=== PATIENT | female | born 1935 | race Caucasian/White ===

== ENCOUNTER 2016-12-13 17:38 | Emergency (ER) | payer OTHER, MEDICARE ==
[~2016-12-13 17:38] MED LIST: ALLOPURINOL300 MG PO; ALUPENT 20MG TA20 MG PO; ASPIR 8181 MG PO; BENADRYL25 MG PO; CALCIUM + D 6001 TAB PO; COLACE100 MG PO; CRANBERRY CONC500 MG PO; DULOXETINE HYDR60 MG PO; FLOVENT HF0.22 MG/Ac INH; FUROSEMIDE20 MG PO; GABAPENTIN100 MG PO; HYDROMORPHONE HC2 MG PO; LEVOCETIRIZINE D5 MG PO; LOVASTATIN20 M1 PO; MACROBID 100 M100 MG PO; MIRALAX17 GM PO; NORVASC 5MG TAB5 MG PO; OMEPRAZOLE20 M2 PO; OXYCONTIN10 MG PO; PANTOPRAZOLE SO40 MG PO; PERCOCET 325 MG1 TA2 PO; PROAIR HFA0.09 MG/Ac INH; SYNTHROID0.075 MG PO; TRAMADOL HCL50 M1 PO; TYLENOL 8 HOUR650 MG PO; VITAB121000 PO; VITAMIN C500 M3 PO; VITAMIN D32000 I1 PO
--- NOTE | 2016-12-13 17:58 | ED MVC/FALL/TRAUMA COMPLAINT ---
History of Present Illness General Chief Complaint: Fall Stated Complaint: FALL Source: patient, family, EMS Exam Limitations: no limitations Vital Signs & Intake/Output Vital Signs & Intake/Output Vital Signs Date Time Temp Pulse Resp B/P Pulse O2 O2 Flow FiO2 Ox Delivery Rate 12/13 1925 96.0 74 20 144/72 97 Room Air 12/13 1749 98.4 78 16 143/68 96 Room Air Room Air Allergies Coded Allergies: adhesive tape (Severe, HIVES 09/17/16) erythromycin base (From Erythrocin) (Severe, NAUSEA, HIVES 09/17/16) Reconcile Medications Albuterol Sulfate (Proair Hfa) 0.09 MG/Actuation MARK 2 PUFF INH PRN ASTHMA/ COPD (Reported) Allopurinol 300 MG TAB 1 TAB PO NOON GOUT (Reported) Amlodipine (Norvasc 5MG Tab) 5 MG TABLET 1 TAB PO QAM BP (Reported) Ascorbic Acid (Vitamin C) 500 MG TAB 1 TAB PO QAM SUPPLEMENT (Reported) Aspirin (Ecotrin) 81 MG TABLET.DR 1 TAB PO 10AM HEART (Reported) Calcium/Vitamin D (Calcium + D) 600 MG/200 IU TAB 1 TAB PO QAM SUPPLEMENT ( Reported) CHOLECALCIFEROL (VITAMIN D3) (Vitamin D-3) (Unknown Strength) CAPSULE 2 TAB PO QAM SUPPLEMENT (Reported) CRANBERRY EXTRACT (Cranberry Concentrate) (Unknown Strength) CAPSULE (Unknown Dose) PO QAM SUPPLEMENT (Reported) Cyanocobalamin (Vitamin B-12) (Unknown Strength) TABLET (Unknown Dose) PO QAM SUPPLEMENT (Reported) Diphenhydramine HCl (Benadryl) 25 MG CAPSULE 1-2 CAP PO Q6P ITCH Docusate Sodium (Colace) (Unknown Strength) CAPSULE (Unknown Dose) PO PRN STOOL SOFTENER (Reported) DULOXETINE HCL (Duloxetine Hydrochloride) 60 MG CAPSULE.DR 1 CAP PO QAM MENTAL HEALTH/NERVE PAIN (Reported) Fluticasone Propionate (Flovent Hfa) 0.22 MG/Actuation MARK 2 PUFF INH BID ASTHMA (Reported) 220 MCG PER PUFF Furosemide 20 MG TABLET 1-2 TAB PO AD DIURETIC (Reported) Gabapentin 100 MG CAPSULE 1 CAP PO TID NERVE PAIN (Reported) LEVOCETIRIZINE DIHYDROCHLORIDE (Levocetirizine Dihydrochloride) 5 MG TABLET 1 TAB PO QAM ALLERGIES/ASTHMA (Reported) Levothyroxine Sodium (Synthroid) 0.075 MG TAB 0.075 MG PO DAILY AC THYROID ( Reported) Lovastatin 20 MG TABLET 1 TAB PO DAILY HEART HEALTH (Reported) Metaproterenol (Alupent 20MG Tablet) 20 MG TABLET 1 TAB PO QPM CHOLESTEROL ( Reported) Nitrofurantoin Monohyd/M-Cryst (Macrobid 100 MG Capsule) 100 MG CAPSULE 1 CAP PO BID UTI with food Omeprazole 20 MG CAPSULE.DR 1 CAP PO DAILY STOMACH HEALTH (Reported) Oxycodone Cr (OxyContin) 10 MG TAB 10 MG PO Q12 PAIN OXYCODONE HCL/ACETAMINOPHEN (Percocet 5-325 MG Tablet) 325 MG/5 MG TAB 1 TAB PO Q4P PRN PAIN SCALE 1-4 OXYCODONE HCL/ACETAMINOPHEN (Percocet 5-325 MG Tablet) 325 MG/5 MG TAB 2 TAB PO Q4P PRN PAIN SCALE 5-10 Pantoprazole Sodium 40 MG TABLET.DR 1 TAB PO DAILY AC GI (Reported) Polyethylene Glycol 3350 (Miralax) 17 GRAM/DOSE POWDER 17 GM PO PRN GI ( Reported) mix with water, juice, soda, coffee or tea Tramadol HCl 50 MG TABLET 1 TAB PO BIDP PRN PAIN (Reported) Triage Note: PT BIBA FROM ASSISTED [facility]ING IN [facility] AFTER TRIPPING AND FALLING WHILE PUTTING HER PANT ON. PT DENIES LOC, PT HIT THE RIGHT EYEBOW AND FELL ONTO THE HAND AND KNEE WHICH ARE BOTH BRUISED AND PAINFUL. NO DEFORMITIES NOTED. NO C-COLLAR PAIN. SHE IS ALERT AND ORIENTED. Triage Nurses Notes Reviewed? yes Onset: Abrupt Duration: hour(s): (1) Timing: single episode today Severity: moderate Injuries/Fall Location: hand, ankle, sternum, chest wall Method of Injury: fall Loss of Consciousness: no loss of consciousness Modifying Factors: Worsens With: movement, other (touch). HPI: This is an 81-year-old female from assisted living who presents by EMS for chief complaint of fall at [facility]. She states she was tried to pull up her pants when she lost her balance and fell forward. She had her face, right hand and ankle. She is usually either wheelchair van uses a walker. She states she activated her [facility] in the staff at the [facility] called EMS for transport. She denies any headache or blurred vision. She denies any weakness or numbness or tingling at any point. He is not any blood thinners. She complains of 7 out of 10 pain in her right wrist, mild sternal pain and some pain in her right ankle. She also complains of [id number] pain in her right face. Past History Travel History Traveled to [place] past 21 day No Medical History Any Pertinent Medical History? 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 Camacho states that approximately a year and a half ago she experienced a back infection of unknown origin that required long-term antibiotic treatment while an inpatient at both [facility] and [facility]. She is not sure of the origin of this infection or the bacteria that was being treated at that time. She does state however she was released from the hospital infection free. History of MRSA: No History of VRE: No History of CDIFF: No Surgical History Surgical History: appendectomy, hysterectomy, L KNEE REPLACEMENT TONSILECTOMY Psychosocial History Who do you live with [facility] at Home None What is your primary language Faroese Tobacco Use: Never used Family History Family History, If Any: FATHER FH: colon cancer MOTHER Valvular heart disease SISTER FH: colon cancer Hx Contributory? No Review of Systems Review of Systems Constitutional: Denies: chills, fever. Eyes: Denies: blurred vision. Ears, Nose, Throat, Mouth: Reports: no symptoms. Respiratory: Denies: cough, short of breath. Cardiovascular: Reports: chest pain. Gastrointestinal/Abdominal: Reports: no symptoms. Genitourinary: Reports: no symptoms. Musculoskeletal: Reports: joint pain, muscle pain. Skin: Reports: no symptoms. Neurological/Psychological: Reports: ataxia. Denies: confusion, headache. All Other Systems: Reviewed and Negative Physical Exam Physical Exam General Appearance: well developed/nourished, alert, awake, anxious, mild distress Head: atraumatic, normal appearance Eyes: Bilateral: normal appearance, PERRL, EOMI. Ears, Nose, Throat, Mouth: hearing grossly normal, moist mucous membrane Neck: normal inspection, supple, full range of motion Respiratory: normal breath sounds, chest non-tender, no respiratory distress Cardiovascular: TENDER OVER STERNUM Peripheral Pulses: 2+ radial (R), 2+ radial (L) Gastrointestinal: normal bowel sounds, soft, non-tender Extremities: normal range of motion Neurologic/Psych: no motor/sensory deficits, awake, alert, oriented x 3 Skin: intact, normal color, warm/dry Core Measures ACS in differential dx? No Severe Sepsis Present: No Septic Shock Present: No Progress Differential Diagnosis: ICH, HAND FX, STERNAL FX, RIB FX, PTX, ORBITAL FRACTURE Plan of Care: Orders Procedure Date/time Status CT CHEST WO IV CONTRAST 12/13 1837 Active XRY-HAND, 2 Views RIGHT 12/13 1756 Active XRY-CHEST XRAY, ONE VIEW ONLY 12/13 1756 Active XRY-TWO VIEW RIGHT ANKLE 12/[address] HEAD WO IV CONTRAST 12/[address] MAXILLOFACIAL W/O CON 12/13 1756 Active Diagnostic Imaging: Viewed by Me: Radiology Read, CT Scan. Discussed w/RAD: Radiology Read, CT Scan. Radiology Impression: PATIENT: SERENA TAN PRESENT AGE: 81 PATIENT ACCOUNT NO: [id number] : 36 LOCATION: [facility] ORDERING PHYSICIAN: YUMIKO MOSS MD SERVICE DATE: 12/13/16 EXAM TYPE: CAT - CT CHEST WO IV CONTRAST EXAMINATION: CT CHEST WITHOUT CONTRAST CLINICAL INFORMATION: Status post fall. Evaluate for sternal fracture. COMPARISON: Chest x-ray 12/13/2016. CT chest without contrast 08/26/2013. TECHNIQUE: Multidetector volumetric CT imaging of the chest was done. Axial MIP volume rendering provided. Sagittal and coronal reformatted images were obtained. DLP: 898 mGy-cm FINDINGS: BIOFUELS TECHNOLOGY MANAGER: Utility Systems Repairer Operator images of the chest demonstrate pulmonary hypoinflation. LUNGS: Evaluation of the lung parenchyma demonstrates pulmonary hypoinflation. There is minimal dependent bibasilar atelectasis. Subsegmental atelectasis is also present within the right middle lobe. Incidental note is made of a 9 mm subpleural nodule abutting the periphery of the right lower lobe (series 3, image 37). This nodule is new relative to a prior CT dating back to 2012. There is no focal airspace consolidation to suggest infection. The central airways are patent, without endobronchial obstructing lesions. MEDIASTINUM: Normal heart size, without significant pericardial effusion. Normal three-vessel branching of the aortic arch. Scattered atherosclerosis of the thoracic aorta and scattered coronary artery calcifications. Normal caliber of the thoracic aorta and main pulmonary artery. No significant mediastinal or hilar adenopathy. Small hiatal hernia. PLEURA: No pleural effusions or pneumothoraces. AXILLA: No significant axillary adenopathy. UPPER ABDOMEN: No acute findings within the upper abdomen. Partially visualized punctate hyperdense foci within the gallbladder. This could represent layering gallstones. OSSEOUS STRUCTURES: No acute sternal fracture. Moderate degenerative changes involving the bilateral glenohumeral joints. No acute displaced fractures of the bilateral ribs. Mild to moderate multilevel degenerative changes of the imaged thoracic spine. No acute thoracic vertebral compression deformity or subluxation. IMPRESSION: 1. No acute sternal fractures. No acute osseous abnormality of the imaged axial or appendicular skeleton. 2. Incidental 9 mm subpleural nodule along the periphery of the right lower lobe. This nodule is indeterminate and entirely nonspecific. Various management parameters for solitary pulmonary nodules are in the literature. According to the Fleischner Society, recommendations for pulmonary nodules are as follows: Nodule size > 8 mm in LOW RISK PATIENTS: Follow up CT at around 3, 9, and 24 months, dynamic contrast-enhanced CT, PET, and/or biopsy. Nodule size > 8 mm in HIGH RISK PATIENTS: Same as for low-risk patients. DICTATED BY: JUAN MOTTA MD DATE/TIME DICTATED:12/13/161915 UTILITY SYSTEMS REPAIRER OPERATOR:GAGE DATE/TIME TRANSCRIBED:12/13/161915 CONFIDENTIAL, DO NOT COPY WITHOUT APPROPRIATE AUTHORIZATION. <Electronically signed in Other Vendor System> SIGNED BY: JUAN MOTTA MD 12/13/161924, PATIENT: SERENA TAN PRESENT AGE: 81 PATIENT ACCOUNT NO: [id number] : 36 LOCATION: [facility] ORDERING PHYSICIAN: YUMIKO MOSS MD SERVICE DATE: 12/13/16 EXAM TYPE: CAT - CT HEAD WO IV CONTRAST; CT MAXILLOFACIAL W/O CON EXAMINATION: CT HEAD AND FACE WITHOUT CONTRAST CLINICAL INFORMATION: Status post fall. Evaluate for orbital fracture and acute intracranial hemorrhage. COMPARISON: MRI brain 10/23/ 2013. Noncontrast head CT 08/26/2013. TECHNIQUE: Multiple axial CT images of the head and face were obtained without intravenous contrast. 2-D coronal and sagittal reformatted images of the face were obtained at the acquisition workstation.. DLP: 1288 mGy-cm. FINDINGS: HEAD: No acute intracranial abnormality. No acute intracranial hemorrhage, mass or mass effect or abnormal extra-axial fluid collections. The density within the dural venous sinuses is within normal limits. The ventricles are normal in size, without hydrocephalus. There are no focal areas of hypoattenuation within a vascular distribution to suggest acute transcortical ischemia. The basilar cisterns are patent. No acute calvarial abnormality is identified. Evaluation of the soft tissues demonstrates minimal right frontal scalp soft tissue swelling. FACE: Noncontrast CT imaging of the face demonstrates minimal right periorbital and right frontal scalp hematoma and soft tissue swelling. No acute maxillofacial fractures are identified. The lamina papyracea are intact. The bilateral globes and orbits appear unremarkable. No orbital floor or orbital roof fractures are identified and there is no significant intraconal or extraconal stranding. No retrobulbar hematoma is visualized. Evaluation of the paranasal sinuses demonstrates chronic left sphenoid sinusitis, characterized by near complete opacification of the left sphenoid sinus with associated periosteal bone formation. There is minimal mucosal thickening of the left ethmoid air cells. The remaining imaged paranasal sinuses and mastoid air cells are well aerated. There is rightward nasal septal deviation with an associated nasal septal spur. The carotid canals are normally covered by bone. The ethmoid roofs are symmetric. The bilateral temporomandibular joints are intact. Evaluation of the imaged upper cervical spine demonstrates demineralization of the visualized bones and partially visualized moderate to severe degenerative changes of the atlantoaxial articulation. IMPRESSION: 1. Minimal right periorbital and right frontal scalp hematoma and soft tissue swelling. Otherwise, no acute intracranial abnormality. No acute maxillofacial fractures. 2. Chronic left sphenoid sinusitis. DICTATED BY: JUAN MOTTA MD DATE/TIME DICTATED:12/13/161904 UTILITY SYSTEMS REPAIRER OPERATOR: GAGE DATE/TIME TRANSCRIBED:12/13/161904 CONFIDENTIAL, DO NOT COPY WITHOUT APPROPRIATE AUTHORIZATION. <Electronically signed in Other Vendor System> SIGNED BY: JUAN MOTTA MD 12/13/161918, PATIENT: SERENA TAN PRESENT AGE: 81 PATIENT ACCOUNT NO: [id number] : 36 LOCATION: [facility] ORDERING PHYSICIAN: YUMIKO MOSS MD SERVICE DATE: 12/13/16 EXAM TYPE: RAD - XRY-TWO VIEW RIGHT ANKLE EXAMINATION: XR ANKLE, RIGHT CLINICAL INFORMATION: Right ankle pain following fall. Evaluate for acute fracture. COMPARISON: None. TECHNIQUE: Lateral and crosstable lateral of the right ankle. FINDINGS: Lateral and crosstable lateral views of the right ankle demonstrate demineralization of the visualized bones. There is limited evaluation of the ankle mortise given lack of the mortise view of the right ankle. There is posttraumatic deformity involving the distal fibula. IMPRESSION: Significantly limited exam. No visible grossly displaced fractures. However, evaluation for an acute right ankle fracture is limited. No true mortise view of the right ankle is provided. There is a remote healed fracture involving the distal fibula. If clinical concern for ankle fracture persists, consider repeat x-ray of the right ankle with standard views. DICTATED BY: JUAN MOTTA MD DATE/TIME DICTATED:12/13/161901 UTILITY SYSTEMS REPAIRER OPERATOR: GAGE DATE/TIME TRANSCRIBED:12/13/161901 CONFIDENTIAL, DO NOT COPY WITHOUT APPROPRIATE AUTHORIZATION. <Electronically signed in Other Vendor System> SIGNED BY: JUAN MOTTA MD 12/13/161906, PATIENT: SERENA TAN PRESENT AGE: 81 PATIENT ACCOUNT NO: [id number] : 36 LOCATION: [facility] ORDERING PHYSICIAN: YUMIKO MOSS MD SERVICE DATE: 12/13/16 EXAM TYPE: RAD - XRY-HAND TWO VIEWS R EXAMINATION: XR HAND, RIGHT CLINICAL INFORMATION: Right hand pain following fall. COMPARISON: None. TECHNIQUE: AP, lateral, and oblique views of the right hand. FINDINGS: Multiple views of the right hand demonstrate diffuse demineralization of the visualized bones. Of note, there is a linear lucency traversing the proximal phalanx of the right fourth finger, indicative of an acute fracture. There is no appreciable intra-articular extension into the metacarpophalangeal joint. There is significant soft tissue swelling surrounding the fourth finger. The visualized bones are diffusely demineralized. There is joint space narrowing involving the metacarpophalangeal joints as well as the proximal and distal interphalangeal joints. There are moderate to severe degenerative changes involving the first carpal metacarpal joint. Severe degenerative changes of the radiocarpal and distal radial ulnar joint are also identified. Also noted is posttraumatic deformity of the distal radius. IMPRESSION: Acute transverse fracture involving the proximal phalanx of the right fourth finger. No appreciable intra-articular extension. Significant soft tissue swelling surrounding the right fourth finger. Additional chronic changes within the right hand and right wrist, as detailed above. DICTATED BY: JUAN MOTTA MD DATE/ TIME DICTATED:12/13/161858 UTILITY SYSTEMS REPAIRER OPERATOR:GAGE DATE/TIME TRANSCRIBED: 12/13/161858 CONFIDENTIAL, DO NOT COPY WITHOUT APPROPRIATE AUTHORIZATION. < Electronically signed in Other Vendor System> SIGNED BY: JUAN MOTTA MD 12/13/16 190 CXR Impression: PATIENT: SERENA ATN PRESENT AGE : 81 PATIENT ACCOUNT NO: [id number] : 36 LOCATION: [facility] ORDERING PHYSICIAN: YUMIKO MOSS MD SERVICE DATE: 12/13/16 EXAM TYPE: RAD - XRY -CHEST XRAY, ONE VIEW ONLY EXAMINATION:\\H\\ \\N\\XR CHEST CLINICAL INFORMATION: Evaluate sternum. COMPARISON: CT chest without contrast 12/13/2016. Chest x-ray 06/01/2015. TECHNIQUE: Single AP view of the chest was obtained. FINDINGS: The lungs are hypoinflated, without focal airspace consolidation. There is minimal dependent bibasilar atelectasis. No pleural effusions or pneumothoraces are identified. Cardiomediastinal contours are stable. Soft tissues are unremarkable. No acute osseous abnormality is identified. Degenerative changes involving the bilateral glenohumeral joints. Limited assessment of the sternum given the patient's physical limitations. IMPRESSION: No acute pulmonary process. Limited evaluation of the sternum given the patient's physical limitations. No appreciable abnormalities of the sternum on a similarly dated noncontrast chest CT. DICTATED BY: JUAN MOTTA MD DATE/TIME DICTATED:1856 UTILITY SYSTEMS REPAIRER OPERATOR:GAGE DATE/TIME TRANSCRIBED:12/13/161856 CONFIDENTIAL, DO NOT COPY WITHOUT APPROPRIATE AUTHORIZATION. <Electronically signed in Other Vendor System> SIGNED BY: ÁNGELA ABREU,JUAN 12/13/16 1903 Departure Departure Time of Disposition: 2103 Disposition: HOME OR SELF CARE Condition: Stable Clinical Impression Primary Impression: Orbital contusion Secondary Impressions: Ankle sprain, Hand fracture, right Referrals: ERI ABREU,BE Xiong UNKNOWN (PCP/Family) Additional Instructions: Take Tylenol as needed for pain. Apply ice to the swollen areas. Please follow -up with the orthopedic doctor listed regarding hand fracture. Return to the ER for any changing or worsening symptoms. Departure Forms: Customer Survey General Discharge Information Procedures Splinting Location: RIGHT HAND SHORT ARM SPLINT Manual Alignment Performed: No Hand-Made Type: orthoglass Splint Applied By: splint applied by me Pre-Proc Neuro Vasc Exam: normal Post-Proc Neuro Vasc Exam: normal
--- NOTE | 2016-12-13 19:03 | RADIOLOGY REPORT ---
EXAMINATION:\H\ \N\XR CHEST CLINICAL INFORMATION: Evaluate sternum. COMPARISON: CT chest without contrast 12/13/2016. Chest x-ray 06/01/2015. TECHNIQUE: Single AP view of the chest was obtained. FINDINGS: The lungs are hypoinflated, without focal airspace consolidation. There is minimal dependent bibasilar atelectasis. No pleural effusions or pneumothoraces are identified. Cardiomediastinal contours are stable. Soft tissues are unremarkable. No acute osseous abnormality is identified. Degenerative changes involving the bilateral glenohumeral joints. Limited assessment of the sternum given the patient's physical limitations. IMPRESSION: No acute pulmonary process. Limited evaluation of the sternum given the patient's physical limitations. No appreciable abnormalities of the sternum on a similarly dated noncontrast chest CT.
--- NOTE | 2016-12-13 19:05 | RADIOLOGY REPORT ---
EXAMINATION: XR HAND, RIGHT CLINICAL INFORMATION: Right hand pain following fall. COMPARISON: None. TECHNIQUE: AP, lateral, and oblique views of the right hand. FINDINGS: Multiple views of the right hand demonstrate diffuse demineralization of the visualized bones. Of note, there is a linear lucency traversing the proximal phalanx of the right fourth finger, indicative of an acute fracture. There is no appreciable intra-articular extension into the metacarpophalangeal joint. There is significant soft tissue swelling surrounding the fourth finger. The visualized bones are diffusely demineralized. There is joint space narrowing involving the metacarpophalangeal joints as well as the proximal and distal interphalangeal joints. There are moderate to severe degenerative changes involving the first carpal metacarpal joint. Severe degenerative changes of the radiocarpal and distal radial ulnar joint are also identified. Also noted is posttraumatic deformity of the distal radius. IMPRESSION: Acute transverse fracture involving the proximal phalanx of the right fourth finger. No appreciable intra-articular extension. Significant soft tissue swelling surrounding the right fourth finger. Additional chronic changes within the right hand and right wrist, as detailed above.
--- NOTE | 2016-12-13 19:07 | RADIOLOGY REPORT ---
EXAMINATION: XR ANKLE, RIGHT CLINICAL INFORMATION: Right ankle pain following fall. Evaluate for acute fracture. COMPARISON: None. TECHNIQUE: Lateral and crosstable lateral of the right ankle. FINDINGS: Lateral and crosstable lateral views of the right ankle demonstrate demineralization of the visualized bones. There is limited evaluation of the ankle mortise given lack of the mortise view of the right ankle. There is posttraumatic deformity involving the distal fibula. IMPRESSION: Significantly limited exam. No visible grossly displaced fractures. However, evaluation for an acute right ankle fracture is limited. No true mortise view of the right ankle is provided. There is a remote healed fracture involving the distal fibula. If clinical concern for ankle fracture persists, consider repeat x-ray of the right ankle with standard views.
--- NOTE | 2016-12-13 19:19 | CT SCAN REPORT ---
EXAMINATION: CT HEAD AND FACE WITHOUT CONTRAST CLINICAL INFORMATION: Status post fall. Evaluate for orbital fracture and acute intracranial hemorrhage. COMPARISON: MRI brain 08/27/2013. Noncontrast head CT 08/26/2013. TECHNIQUE: Multiple axial CT images of the head and face were obtained without intravenous contrast. 2-D coronal and sagittal reformatted images of the face were obtained at the acquisition workstation.. DLP: 1288 mGy-cm. FINDINGS: HEAD: No acute intracranial abnormality. No acute intracranial hemorrhage, mass or mass effect or abnormal extra-axial fluid collections. The density within the dural venous sinuses is within normal limits. The ventricles are normal in size, without hydrocephalus. There are no focal areas of hypoattenuation within a vascular distribution to suggest acute transcortical ischemia. The basilar cisterns are patent. No acute calvarial abnormality is identified. Evaluation of the soft tissues demonstrates minimal right frontal scalp soft tissue swelling. FACE: Noncontrast CT imaging of the face demonstrates minimal right periorbital and right frontal scalp hematoma and soft tissue swelling. No acute maxillofacial fractures are identified. The lamina papyracea are intact. The bilateral globes and orbits appear unremarkable. No orbital floor or orbital roof fractures are identified and there is no significant intraconal or extraconal stranding. No retrobulbar hematoma is visualized. Evaluation of the paranasal sinuses demonstrates chronic left sphenoid sinusitis, characterized by near complete opacification of the left sphenoid sinus with associated periosteal bone formation. There is minimal mucosal thickening of the left ethmoid air cells. The remaining imaged paranasal sinuses and mastoid air cells are well aerated. There is rightward nasal septal deviation with an associated nasal septal spur. The carotid canals are normally covered by bone. The ethmoid roofs are symmetric. The bilateral temporomandibular joints are intact. Evaluation of the imaged upper cervical spine demonstrates demineralization of the visualized bones and partially visualized moderate to severe degenerative changes of the atlantoaxial articulation. IMPRESSION: 1. Minimal right periorbital and right frontal scalp hematoma and soft tissue swelling. Otherwise, no acute intracranial abnormality. No acute maxillofacial fractures. 2. Chronic left sphenoid sinusitis.
--- NOTE | 2016-12-13 19:25 | CT SCAN REPORT ---
EXAMINATION: CT CHEST WITHOUT CONTRAST CLINICAL INFORMATION: Status post fall. Evaluate for sternal fracture. COMPARISON: Chest x-ray 12/13/2016. CT chest without contrast 08/26/2013. TECHNIQUE: Multidetector volumetric CT imaging of the chest was done. Axial MIP volume rendering provided. Sagittal and coronal reformatted images were obtained. 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 LUNGS: Evaluation of the lung parenchyma demonstrates pulmonary hypoinflation. There is minimal dependent bibasilar atelectasis. Subsegmental atelectasis is also present within the right middle lobe. Incidental note is made of a 9 mm subpleural nodule abutting the periphery of the right lower lobe (series 3, image 37). This nodule is new relative to a prior CT dating back to 2012. There is no focal airspace consolidation to suggest infection. The central airways are patent, without endobronchial obstructing lesions. MEDIASTINUM: Normal heart size, without significant pericardial effusion. Normal three-vessel branching of the aortic arch. Scattered atherosclerosis of the thoracic aorta and scattered coronary artery calcifications. Normal caliber of the thoracic aorta and main pulmonary artery. No significant mediastinal or hilar adenopathy. Small hiatal hernia. PLEURA: No pleural effusions or pneumothoraces. AXILLA: No significant axillary adenopathy. UPPER ABDOMEN: No acute findings within the upper abdomen. Partially visualized punctate hyperdense foci within the gallbladder. This could represent layering gallstones. OSSEOUS STRUCTURES: No acute sternal fracture. Moderate degenerative changes involving the bilateral glenohumeral joints. No acute displaced fractures of the bilateral ribs. Mild to moderate multilevel degenerative changes of the imaged thoracic spine. No acute thoracic vertebral compression deformity or subluxation. IMPRESSION: 1. No acute sternal fractures. No acute osseous abnormality of the imaged axial or appendicular skeleton. 2. Incidental 9 mm subpleural nodule along the periphery of the right lower lobe. This nodule is indeterminate and entirely nonspecific. Various management parameters for solitary pulmonary nodules are in the literature. According to the Fleischner Society, recommendations for pulmonary nodules are as follows: Nodule size > 8 mm in LOW RISK PATIENTS: Follow up CT at around 3, 9, and 24 months, dynamic contrast-enhanced CT, PET, and/or biopsy. Nodule size > 8 mm in HIGH RISK PATIENTS: Same as for low-risk patients.
[2016-12-13 21:13] VITALS: BP 138/89
== END 2016-12-13 21:15 ==
LOC: ERH 17:38
DX: S62.614A Displaced fracture of proximal phalanx of right ring finger, initial encounter for closed fracture (principal); S93.401A Sprain of unspecified ligament of right ankle, initial encounter; S05.11XA Contusion of eyeball and orbital tissues, right eye, initial encounter; W19.XXXA Unspecified fall, initial encounter; Y92.129 Unspecified place in nursing home as the place of occurrence of the external cause
CPT/HCPCS: 73120-RT; 73600-RT

== ENCOUNTER 2017-02-25 17:09 | Emergency (ER) | payer OTHER, MEDICARE ==
[2017-02-25 17:30] LABS: ABSOLUTE BASOPHIL COUNT 0.1 /CUMM (0.0-0.2); ABSOLUTE EOSINOPHIL COUNT 0.2 /CUMM (0.0-0.7); ABSOLUTE GRANULOCYTE CT 6.5 /CUMM (1.4-6.5); ABSOLUTE LYMPH COUNT 1.7 /CUMM (1.2-3.4); ABSOLUTE MONOCYTE COUNT 0.7 /CUMM (0.10-0.60); BASOPHIL % 0.7 % (0.0-2.0); EOSINOPHIL % 2.6 % (0-5); GRANULOCYTE % 70.4 % (42.2-75.2); HEMATOCRIT 37.1 % (37-47); MEAN CORPUSCULAR HGB 28.8 PG (27.0-31.0); MEAN CORPUSCULAR HGB CONC 32.3 G/DL (33.0-37.0); MEAN CORPUSCULAR VOLUME 89.1 FL (81.0-99.0); MEAN PLATELET VOLUME 9.6 FL (7.4-10.4); PLATELET COUNT 210 /CUMM (130-400); RBC DISTRIBUTION WIDTH 16.7 % (11.5-14.5); RED BLOOD CELL CT 4.16 /CUMM (4.20-5.40); WHITE BLOOD CELL COUNT 9.2 /CUMM (4.8-10.8)
[2017-02-25] MEDS ORDERED: AMLODIPINE BESYL5 M1 PO (17:36)
[2017-02-25] MEDS ORDERED: DULOXETINE HCL60 MG PO (17:36)
[2017-02-25] MEDS ORDERED: ALPRAZOLAM0.25 M1 PO (17:36)
[2017-02-25] MEDS ORDERED: PREDNISONE10 M2 PO (17:37)
[2017-02-25] MEDS ORDERED: NYSTATIN15 G1 TOP (17:38)
[2017-02-25] MEDS ORDERED: NYSTOP60 GM TOP (17:38)
--- NOTE | 2017-02-25 17:38 | ED AMS/SEIZURE/WEAK/DIZZY ---
History of Present Illness General Chief Complaint: General Adult Stated Complaint: LETHARGY X ONE WEEK Source: patient, old records Exam Limitations: no limitations Vital Signs & Intake/Output Vital Signs & Intake/Output Vital Signs Date Time Temp Pulse Resp B/P B/P Pulse O2 O2 Flow FiO2 Mean Ox Delivery Rate 02/25 1914 96.5 75 20 129/70 97 Room Air 02/25 1721 98.9 77 18 136/65 96 Room Air Allergies Coded Allergies: adhesive tape (Severe, HIVES 09/17/16) erythromycin base (From Erythrocin) (Severe, NAUSEA, HIVES 09/17/16) Reconcile Medications Acetaminophen (Arthritis Pain Relief) 650 MG TABLET.ER 1 TAB PO 1300 PAIN ( Reported) Acetaminophen 325 MG CAPSULE 2 CAP PO Q4H PRN PAIN (Reported) Albuterol Sulfate (Proventil Hfa) 90 MCG HFA.AER.AD 2 PUF INH Q4 PRN WHEEZE ( Reported) Albuterol Sulfate (Proair Hfa) 90 MCG HFA.AER.AD 2 PUF INH Q4H PRN WHEEZING ( Reported) Allopurinol 300 MG TABLET 1 TAB PO DAILY GOUT (Reported) Alprazolam 0.25 MG TABLET 1 TAB PO BID ANXIETY (Reported) Amlodipine Besylate 5 MG TABLET 1 TAB PO DAILY BP (Reported) Cholecalciferol (Vitamin D3) (Vitamin D) 1,000 UNIT TABLET 1 TAB PO BID SUPPLEMENT (Reported) Cyanocobalamin (Vitamin B-12) 1,000 MCG TABLET 1 TAB PO DAILY SUPPLEMENT ( Reported) Diphenhydramine HCl (Benadryl) 25 MG CAPSULE 1 CAP PO DAILY PRN ITCHINESS ( Reported) Duloxetine HCl 60 MG CAPSULE.DR 1 CAP PO DAILY NERVE PAIN (Reported) Ferrous Sulfate 325 MG (65 MG IRON) TABLET 1 TAB PO 1900 SUPPLEMENT (Reported ) Fluticasone Propionate 50 MCG/ACTUATION SPRAY.SUSP 1 SPRAY NASB DAILY ALLERGIES (Reported) Fluticasone Propionate (Flovent Hfa) 110 MCG/ACTUATION AER.W.ADAP 2 PUF INH BID RESPIRATORY (Reported) Furosemide 20 MG TABLET 1 TAB PO EOD DIURETIC (Reported) Furosemide 40 MG TABLET 1 TAB PO EOD DIURETIC (Reported) Gabapentin 300 MG CAPSULE 2 CAP PO TID NERVE PAIN (Reported) Guaifenesin (Rosalia-Tussin) 100 MG/5 ML LIQUID 10 ML PO Q6H PRN MUCUS\\COUGH ( Reported) Hydrocortisone 1 % CREAM..G. 1 YVAN TOP BID PRN ITCHING-LEFT HAND (Reported) apply to affected area(s) Levocetirizine Dihydrochloride 5 MG TABLET 1 TAB PO QPM ALLERGIES (Reported) Levothyroxine Sodium (Synthroid) 75 MCG TABLET 1 TAB PO DAILY THYROID ( Reported) Lovastatin 20 MG TABLET 1 TAB PO DAILY CHOLESTEROL (Reported) Magnesium Carbonate/Al Hydrox (Gnp Antacid Ext Strgth Chw Tab) (Unknown Strength ) TAB.CHEW (Unknown Dose) PO DAILY PRN INDIGESTION (Reported) Nystatin 100,000 UNIT/GRAM CREAM..G. 1 YVAN TOP BID SKIN FOLDS (Reported) apply to affected area(s) Nystatin (Nystop) 100,000 UNIT/GRAM POWDER 1 YVAN TOP BID SKIN FOLDS (Reported ) Omeprazole 20 MG CAPSULE.DR 1 CAP PO BID GI (Reported) Prednisone 10 MG TABLET 1 TAB PO BID STEROID (Reported) Psyllium Husk (Metamucil) (Unknown Strength) POWDER (Unknown Dose) PO QAM SUPPLEMENT (Reported) Sennosides/Docusate Sodium (Senna S Tablet) 8.6 MG-50 MG TABLET 2 TAB PO QHS GI (Reported) Tramadol HCl 50 MG TABLET 1 TAB PO TID PRN PAIN (Reported) Triage Note: [facility] FROM [facility]. 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 SHE WAS HOWEVER NOTED TO BE LETAHRGIC. SHE IS AROUSABLE TO VERBAL STIMULI HOWEVER EASILY FALLS ASLEEP. SHE OFFERED NO COMPLAINTS ON ARRIVAL Triage Nurses Notes Reviewed? yes HPI: pt presents for eval of constant and worsening lethargy that began gradually one week ago. pt states nothing seems to make her feel better. she does refer associated "heavy breathing" and "sleepiness". She otherwise denies fever, cold symptoms, dysuria, chest pain, abdominal pain, vomiting or diarrhea. She has maintained a normal feeling intake. She was recently admitted to the [facility] for a combination of the flu and asthma. Past History Travel History Traveled to [place] past 21 day No Medical History Any Pertinent Medical History? 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 Camacho states that approximately a year and a half ago she experienced a back infection of unknown origin that required long-term antibiotic treatment while an inpatient at both [facility] and [facility]. She is not sure of the origin of this infection or the bacteria that was being treated at that time. She does state however she was released from the hospital infection free. History of MRSA: No History of VRE: No History of CDIFF: No Surgical History Surgical History: appendectomy, hysterectomy, L KNEE REPLACEMENT TONSILECTOMY Psychosocial History Who do you live with [facility] [facility] at Home None What is your primary language Occitan Tobacco Use: Never used Family History Family History, If Any: FATHER FH: colon cancer MOTHER Valvular heart disease SISTER FH: colon cancer Hx Contributory? No Review of Systems Review of Systems Constitutional: Reports: see HPI. EENTM: Reports: no symptoms. Respiratory: Reports: see HPI. Cardiovascular: Reports: no symptoms. GI: Reports: no symptoms. Genitourinary: Reports: no symptoms. Musculoskeletal: Reports: no symptoms. Skin: Reports: no symptoms. Neurological/Psychological: Reports: no symptoms. Hematologic/Endocrine: Reports: no symptoms. Immunologic/Allergic: Reports: no symptoms. All Other Systems: Reviewed and Negative Physical Exam Physical Exam General Appearance: see below Comments: Gen.: Well-nourished, well-developed, no acute respiratory distress. Overweight. Head: Normocephalic, atraumatic. Eyes: Normal inspection bilaterally Ears: Normal inspection bilaterally Nose: Normal inspection Throat/mouth : Moist mucosa Neck: Supple, full range of motion, no goiter Heart: Regular rate and rhythm, no murmurs rubs or gallops Lungs: Clear to auscultation bilaterally with normal air entry Chest: Nontender Back: Normal range of motion Abdomen: Soft, mild left lower quadrant abdominal tenderness without rebound or guarding, nondistended, normal bowel sounds Extremities: Normal range of motion grossly, equal radial pulses, no cyanosis clubbing or edema Neurologic: Cranial nerves grossly intact, speech is clear Skin: warm and dry Psychiatric: Calm, cooperative, no apparent delusions or hallucinations Core Measures ACS in differential dx? No CVA/TIA Diagnosis: No Severe Sepsis Present: No Septic Shock Present: No Progress Differential Diagnosis: arrythmia, anemia, dehydration, hypoglycemia, hypoxia, UTI/pyelo Plan of Care: Orders Procedure Date/time Status URINALYSIS 02/25 1737 Complete EKG 02/25 1737 Active TSH REFLEX 02/25 1723 Complete TROPONIN LEVEL 02/25 1723 Complete COMPREHENSIVE METABOLIC PANEL 02/25 1723 Complete CBC WITHOUT DIFFERENTIAL 02/25 1723 Complete Current Medications Sig/Esme Start time Last Medication Dose Stop Time Status Admin Nitrofurantoin 100 MG ONCE ONE 02/25 2015 AC (Macrodantin 50MG 02/26 2016 Cap) Laboratory Tests 02/25/17 1845: Urine Color YEL, Urine Clarity HAZY H, Urine pH 6.5, Ur Specific [place] 1.010, Urine Protein NEG, Urine Ketones NEG, Urine Nitrite NEG, Urine Bilirubin NEG, Urine Urobilinogen 0.2, Ur Leukocyte Esterase MOD H, Ur Microscopic SEDIMENT EXAMINED, Urine RBC 1-3, Urine WBC 25-50 H, Ur Epithelial Cells FEW, Urine Bacteria RARE H, Urine Hemoglobin NEG, Urine Glucose NEG 02/25/171736: Troponin I Cancelled, TSH &T3 &Free T4 Intrp Cancelled 02/25/171722: Anion Gap 11, Estimated GFR 53 L, BUN/Creatinine Ratio 25.0, Glucose 99, Calcium 8.5, Total Bilirubin 0.9, AST 29, ALT 24, Alkaline Phosphatase 124, Troponin I < 0.01, Total Protein 7.0, Albumin 4.0, Globulin 3.0, Albumin/ Globulin Ratio 1.3, TSH &T3 &Free T4 Intrp 2.220, CBC w Diff NO MAN DIFF REQ, RBC 4.16 L, MCV 89.1, MCH 28.8, RDW 16.7 H, MPV 9.6, Gran % 70.4, Lymphocytes % 19.0 L, Monocytes % 7.3, Eosinophils % 2.6, Basophils % 0.7, Absolute Granulocytes 6.5, Absolute Lymphocytes 1.7, Absolute Monocytes 0.7 H, Absolute Eosinophils 0.2, Absolute Basophils 0.1, PUBS MCHC 32.3 L Initial ED EKG: NSR, rate (75), RBBB Prior EKG: unchanged Comments: 02/25/2017 8:09:00 PM I have updated juan jose and her on test results. Her states that she has had similar lethargy and slightly altered mental status associated with prior urinary tract infections. He feels comfortable taking her home on antibiotics and following up with her primary care physician. Departure Departure Disposition: HOME OR SELF CARE Condition: Stable Clinical Impression Primary Impression: UTI (urinary tract infection) Qualifiers: Urinary tract infection type: acute cystitis Hematuria presence: without hematuria Qualified Code: N30.00 - Acute cystitis without hematuria Referrals: UNKNOWN (PCP/Family) Additional Instructions: Macrobid as prescribed. Maintained a good fluid intake. Follow-up with your primary care physician if not improving in the next 48-72 hours. Return immediately if any concerns or sudden worsening. Thank you for choosing the [facility] for your care. It was a pleasure to serve you today. Jonathan Castro M.D. [facility] Departure Forms: Customer Survey General Discharge Information Prescriptions: Current Visit Scripts Nitrofurantoin Macrocrystal (Macrodantin) 1 CAP PO BID #[id number] CAP
[2017-02-25] MEDS ORDERED: ALLOPURINOL300 M1 PO (17:39)
[2017-02-25] MEDS ORDERED: FUROSEMIDE20 M1 PO (17:39)
[2017-02-25] MEDS ORDERED: FLUTICASONE PRO16 GM NASB (17:39)
[2017-02-25] MEDS ORDERED: FUROSEMIDE40 M1 PO (17:40)
[2017-02-25] MEDS ORDERED: SYNTHROID75 MCG PO (17:40)
[2017-02-25] MEDS ORDERED: METAMUCIL660 GM PO (19:12)
[2017-02-25] MEDS ORDERED: VITAMIN D1000 UNIT PO (19:13)
[2017-02-25 19:14] VITALS: BP 129/70
[2017-02-25] MEDS ORDERED: SENNA S TABLET1 EACH PO (19:14)
[2017-02-25] MEDS ORDERED: LEVOCETIRIZINE D5 M1 PO (19:14)
[2017-02-25] MEDS ORDERED: GABAPENTIN300 M2 PO (19:15)
[2017-02-25] MEDS ORDERED: GERI-TUSSI100 MG/5 M PO (19:16)
[2017-02-25] MEDS ORDERED: PROVENTIL HFA6.7 GM INH (19:17)
[2017-02-25] MEDS ORDERED: VITAMIN B-121000 MC3 PO (19:18)
[2017-02-25] MEDS ORDERED: ARTHRITIS PAIN650 M3 PO (19:29)
[2017-02-25] MEDS ORDERED: FERROUS SULFAT325 M3 PO (19:30)
[2017-02-25] MEDS ORDERED: FLOVENT HFA12 G1 INH (19:31)
[2017-02-25] MEDS ORDERED: BENADRYL25 MG PO (19:32)
[2017-02-25] MEDS ORDERED: [UNRECOGNIZED DRUG - OTHER] PO (19:37)
[2017-02-25] MEDS ORDERED: PROAIR HFA8.5 GM INH (19:40)
[2017-02-25] MEDS ORDERED: ACETAMINOPHEN325 M3 PO (19:40)
[2017-02-25] MEDS ORDERED: HYDROCORTISO453.6 G1 TOP (19:53)
[2017-02-25] MEDS ORDERED: MACRODANTIN100 M1 PO (20:14)
== END 2017-02-25 20:41 ==
LOC: ERH 17:09
PROVIDERS: Emergency Medicine
DX: N39.0 Urinary tract infection, site not specified (principal)
CPT/HCPCS: 81001; 93005; 93010

== ENCOUNTER 2017-11-05 19:48 | Inpatient (IN) | payer OTHER, MEDICARE ==
[~2017-11-05] VITALS: Ht 149.9 cm; Wt 158.9 kg
[~2017-11-05 19:48] MED LIST changes: +ACETAMINOPHEN325 M3 PO; +ALLOPURINOL300 M1 PO; +ALPRAZOLAM0.25 M1 PO; +AMLODIPINE BESYL5 M1 PO; +ARTHRITIS PAIN650 M3 PO; +DULOXETINE HCL60 MG PO; +FERROUS SULFAT325 M3 PO; +FLOVENT HFA12 G1 INH; +FLUTICASONE PRO16 GM NASB; +FUROSEMIDE20 M1 PO; +FUROSEMIDE40 M1 PO; +GABAPENTIN300 M2 PO; +GERI-TUSSI100 MG/5 M PO; +HYDROCORTISO453.6 G1 TOP; +LEVOCETIRIZINE D5 M1 PO; +MACRODANTIN100 M1 PO; +METAMUCIL660 GM PO; +MUCINEX600 M1 PO; +NYSTATIN15 G1 TOP; +NYSTOP60 GM TOP; +PREDNISONE10 M2 PO; +PROAIR HFA8.5 GM INH; +PROVENTIL HFA6.7 GM INH; +SENNA S TABLET1 EACH PO; +SYNTHROID75 MCG PO; +VITAMIN B-121000 MC3 PO; +VITAMIN D1000 UNIT PO; +[UNRECOGNIZED DRUG - OTHER] PO
--- NOTE | 2017-11-05 20:12 | ED GI/GU/ABDOMINAL COMPLAINT ---
History of Present Illness General Chief Complaint: Abdominal Pain/Flank Pain Stated Complaint: ABD PAIN Source: patient Exam Limitations: no limitations Vital Signs & Intake/Output Vital Signs & Intake/Output Vital Signs Date Time Temp Pulse Resp B/P B/P Pulse O2 O2 Flow FiO2 Mean Ox Delivery Rate 11/08 1536 98.0 68 20 120/60 96 11/08 0800 98 Nasal 3.0L Cannula 11/08 0729 99 Nasal 3.0L Cannula 11/08 0630 98.1 90 18 118/60 95 Nasal Cannula 11/08 0000 Nasal 3.0L Cannula 11/07 2253 98.3 103 20 122/60 98 Nasal 3.0L Cannula ED Intake and Output 11/08 0000 11/07 1200 Intake Total 880 240 Output Total 650 250 Balance 230 -10 Intake, Oral 880 240 Number 0 Bowel Movements Output, Urine 650 250 Patient 246 lb Weight Weight Bed scale Measurement Method Allergies Coded Allergies: adhesive tape (Severe, HIVES- PER PT PAPER TAPE OK 09/12/17) erythromycin base (From Erythrocin) (Severe, NAUSEA, HIVES 09/17/16) Triage Note: TRIAGE: 82 Y/O FEMALE BIBA FROM [facility] C/O +NAUSEA, +VOMITING TODAY. AT PRESENT, DENIES NAUSEA. INITIALLY DENIED PAIN OR COMPLAINTS; HOWEVER, UPON FURTHER INTERVIEW, NOW REPORTS PAIN 8-10/10 RIGHT SHOULDER. 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 BASELINE, NOT ON OXYGEN. UPON ARRIVAL, SPO2 ON RA 85% - PLACED ON 2L O2, IMPROVED TO 95-96%. Triage Nurses Notes Reviewed? yes ? N Is pt currently ? No Onset: Gradual Duration: hour(s): Timing: multiple episodes today Quality/Severity: moderate HPI: 82yo female with hx of HTN, asthma BIBA to ED from [facility] for nausea and vomiting today. When asked, patient is unsure of why she was brought here to the hospital. Patient complains of chronic right shoulder pain, no recent injury or change in quality of pain. Otherwise patient feels well, no complaints. She denies current nausea or abdominal pain. Patient's son reports that the patient is more confused currently, reports a history of UTI with similar altered mental status in the past. Patient denies chest pain, dyspnea, dysuria, urinary frequency, back pain, headache, visual changes, diarrhea, constipation. (Livier RIOS,Rhoda Joseph) Reconcile Medications Acetaminophen (Arthritis Pain Relief) 650 MG TABLET.ER 1 TAB PO PRN PAIN ( Reported) Albuterol Sulfate (Proair Hfa) 90 MCG HFA.AER.AD 2 PUF INH Q4H PRN WHEEZING ( Reported) Albuterol Sulfate (Proventil Hfa) 90 MCG HFA.AER.AD 2 PUF INH Q4-PRN WHEEZING (Reported) Allopurinol 300 MG TABLET 1 TAB PO DAILY GOUT (Reported) Alprazolam 0.25 MG TABLET 1 TAB PO BID ANXIETY (Reported) Amlodipine Besylate 5 MG TABLET 1 TAB PO DAILY BP (Reported) Calcium (Elemental-Fr Calcarb) (Calcium Carbonate) 600 MG CALCIUM (1,500 MG) TABLET 1 TAB PO DAILY SUPPLEMENT (Reported) Cholecalciferol (Vitamin D3) (Vitamin D) 1,000 UNIT TABLET 1 TAB PO BID SUPPLEMENT (Reported) Cyanocobalamin (Vitamin B-12) 1,000 MCG TABLET 1 TAB PO DAILY SUPPLEMENT ( Reported) diphenhydrAMINE HCl (Benadryl) 25 MG CAPSULE 1 CAP PO PRN ITCHINESS (Reported ) Duloxetine HCl 60 MG CAPSULE.DR 1 CAP PO DAILY NERVE PAIN (Reported) Ferrous Sulfate 325 MG (65 MG IRON) TABLET 1 TAB PO 1900 SUPPLEMENT (Reported ) Fluticasone Propionate 50 MCG/ACTUATION SPRAY.SUSP 1 SPRAY NASB DAILY ALLERGIES (Reported) Fluticasone Propionate (Flovent Hfa) 110 MCG/ACTUATION AER.W.ADAP 2 PUF INH BID RESPIRATORY (Reported) Furosemide 40 MG TABLET 1 TAB PO EOD DIURETIC (Reported) Furosemide 20 MG TABLET 1 TAB PO EOD DIURETIC (Reported) Gabapentin 300 MG CAPSULE 2 CAP PO TID NERVE PAIN (Reported) Guaifenesin (Rosalia-Tussin) (Unknown Strength) LIQUID (Unknown Dose) PO AD PRN MUCUS\\COUGH (Reported) Guaifenesin (Mucinex) 600 MG TAB.ER.12H 1 TAB PO BID COUGH Ipratropium/Albuterol Sulfate (Iprat-Albut 0.5-3(2.5) MG/3 Ml) 0.5 MG-3 MG (2.5 MG BASE)/3 ML AMPUL.NEB 1 UDC INH Q4 HRS NEEDED PRN WHEEZING (Reported) Levocetirizine Dihydrochloride 5 MG TABLET 1 TAB PO QPM ALLERGIES (Reported) Levothyroxine Sodium (Synthroid) 75 MCG TABLET 1 TAB PO DAILY THYROID ( Reported) Lovastatin 20 MG TABLET 1 TAB PO DAILY CHOLESTEROL (Reported) Omeprazole 20 MG CAPSULE.DR 1 CAP PO BID GI (Reported) Psyllium Husk/Aspartame (Metamucil Powder) 3.4 GRAM/5.8 GRAM POWDER 5 ML PO DAILY CONSTIPATION (Reported) Sennosides/Docusate Sodium (Senna S Tablet) 8.6 MG-50 MG TABLET 2 TAB PO QHS GI (Reported) (Gloria ABREU,Jonathan Azul) Past History Travel History Traveled to [place] past 21 day No Medical History Any Pertinent Medical History? 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 Camacho states that approximately a year and a half ago she experienced a back infection of unknown origin that required long-term antibiotic treatment while an inpatient at both [facility] and [facility]. She is not sure of the origin of this infection or the bacteria that was being treated at that time. She does state however she was released from the hospital infection free. History of MRSA: No History of VRE: No History of CDIFF: No Influenza Vaccine: 09/10/17 Surgical History Surgical History: appendectomy, hysterectomy, L KNEE REPLACEMENT TONSILECTOMY Psychosocial History Who do you live with [employer] at Home None What is your primary language Frisian Tobacco Use: Never used ETOH Use: denies use Illicit Drug Use: denies illicit drug use Family History Family History, If Any: FATHER FH: colon cancer MOTHER Valvular heart disease SISTER FH: colon cancer Hx Contributory? No (Livier RIOS,Rhoda Joseph) Review of Systems Review of Systems Constitutional: Reports: see HPI. EENTM: Reports: no symptoms. Respiratory: Reports: no symptoms. Cardiovascular: Reports: no symptoms. GI: Reports: see HPI. Genitourinary: Reports: see HPI. Musculoskeletal: Reports: no symptoms. Skin: Reports: no symptoms. Neurological/Psychological: Reports: see HPI. Hematologic/Endocrine: Reports: no symptoms. Immunologic/Allergic: Reports: no symptoms. All Other Systems: Reviewed and Negative (Livier RIOS,Rhoda Joseph) Physical Exam Physical Exam General Appearance: well developed/nourished, no apparent distress, alert, awake Head: atraumatic, normal appearance Eyes: Bilateral: normal appearance, PERRL, EOMI. Ears, Nose, Throat, Mouth: hearing grossly normal, moist mucous membrane Neck: normal inspection, supple, full range of motion Respiratory: normal breath sounds, no respiratory distress, lungs clear Cardiovascular: tachycardia Peripheral Pulses: 2+ radial (R), 2+ radial (L) Gastrointestinal: normal bowel sounds, soft, non-tender, no organomegaly, exam limited d/t obesity Back: normal inspection, normal range of motion Extremities: 1+ pitting edema bilateral lower extremities Neurologic/Psych: awake, alert, health careers instructor II-XII nml as tested, alert and oriented to person and place, not to time Skin: intact, normal color, warm/dry Core Measures ACS in differential dx? Yes Sepsis Present: No Sepsis Focused Exam Completed? No (Livier RIOS,Rhoda Joseph) Progress Differential Diagnosis: AMI, bowel obstruction, cholecystitis, diverticulitis, gastritis, inflamm bowel dis, kidney stone, pancreatitis, PUD/GERD, perforated viscous, SBO, UTI/pyelo Plan of Care: Orders Procedure Date/time Status RT RE-EVALUATION 11/08 UNK Complete OXYGEN SETUP (GEN) 11/08 UNK Complete OXYGEN 11/07 UNK Complete OXYGEN DAILY CHARGE 11/07 UNK Complete Current Medications Sig/Esme Start time Last Medication Dose Stop Time Status Admin Azithromycin 250 MG DAILY 11/09 1000 AC (Zithromax) 11/11 1100 Sodium Chloride 250 ML (Normal Saline 0.9%) Prednisone 40 MG DAILY 11/09 1000 AC 11/12 1100 Trimethobenzamide HCl 200 MG 4 TIMES/DAY PRN 11/08 1015 AC 11/08 (Tigan) 1356 Budesonide/ 2 PUF BID 11/08 1000 AC 11/08 Formoterol Fumarate 1735 (Symbicort) Ondansetron HCl 4 MG ONCE ONE 11/08 1000 CAN (Zofran) 11/08 1001 Pantoprazole Sodium 40 MG ONCE ONE 11/08 1000 CAN (Protonix) 11/08 1001 Albuterol Sulfate 2 PUF Q4-6 PRN PRN 11/08 0845 AC (Ventolin) Enoxaparin Sodium 40 MG DAILY 11/07 1000 AC 11/08 (Lovenox) 0920 Ferrous Sulfate 325 MG DAILY 11/07 1000 AC 11/08 (Feosol) 0920 Ceftriaxone Sodium 1,000 MG Q24H 11/07 0300 AC 11/08 (Rocephin) 0322 Melatonin 3 MG AT BEDTIME 11/07 0215 AC 11/07 (Melatonin) 2100 Atorvastatin Calcium 20 MG 1700 11/06 1700 AC 11/08 (Lipitor) 1718 Guaifenesin 600 MG BID 11/06 1000 AC 11/08 (Mucinex) 0920 Levothyroxine Sodium 0.075 MG DAILY AC 11/06 0700 AC 11/08 (Synthroid) 0554 Lidocaine 1 PAT Q24H 11/06 0700 AC 11/08 (Lidoderm) 0553 Pantoprazole Sodium 40 MG DAILY 11/06 0530 AC 11/08 (Protonix) 0914 Oxycodone HCl 5 MG Q8P PRN 11/06 0500 AC (Roxicodone) Acetaminophen 650 MG Q8P PRN 11/06 0400 AC (Tylenol) Laboratory Tests 11/08/17 0725: Anion Gap 8, Estimated GFR > 60, BUN/Creatinine Ratio 16.3, CBC w Diff NO MAN DIFF REQ, RBC 3.77 L, MCV 89.7, MCH 29.4, RDW 16.6 H, MPV 9.3, Gran % 69.9, Lymphocytes % 19.4 L, Monocytes % 7.0, Eosinophils % 3.3, Basophils % 0.4, Absolute Granulocytes 3.9, Absolute Lymphocytes 1.1 L, Absolute Monocytes 0.4, Absolute Eosinophils 0.2, Absolute Basophils 0, PUBS MCHC 32.8 L Upon arrival patient's oxygenation was 85%. Patient placed on 2 L via NC and O2 sat improved to 97%. Patient not complaining of any dyspnea or chest pain. UA without sign of UTI, lactic acid WNL, troponin negative. Patient's d-dimer is elevated. Given hypoxia and tachycardia will obtain CTA chest to rule out pulmonary embolism. With patient's recent symptoms of nausea and vomiting will obtain CT abdomen to assess for intra-abdominal pathology as well. The patient was signed out to Dr. Castro pending CT scan results. Diagnostic Imaging: Viewed by Me: Radiology Read. Discussed w/RAD: Radiology Read. CXR Impression: PATIENT: SERENA TAN PRESENT AGE : 82 PATIENT ACCOUNT NO: [id number] : 36 LOCATION: [facility] ORDERING PHYSICIAN: Rhoda RIOS SERVICE DATE: 11/05/17 EXAM TYPE: RAD - XRY-PORTABLE CHEST XRAY EXAMINATION: XR PORTABLE CHEST CLINICAL INFORMATION: Pneumonia COMPARISON: 09/12/2017 chest x-ray TECHNIQUE: Portable frontal view of the chest was obtained. FINDINGS: Stable cardiomediastinal silhouette with borderline cardiac size. Low lung volumes due to hypoventilatory exam. The lungs are clear. No sizable pleural effusion or pneumothorax. Degenerative changes of the shoulder joints noted. IMPRESSION: Stable chest x-ray without acute cardiopulmonary findings. DICTATED BY: Adrienne Rios MD DATE/TIME DICTATED:11/22 CREDIT REFERENCE CLERK:GAGE DATE/TIME TRANSCRIBED:11/05/172048 CONFIDENTIAL, DO NOT COPY WITHOUT APPROPRIATE AUTHORIZATION. <Electronically signed in Other Vendor System> SIGNED BY: Adrienne Rios MD 11/05/172053 Initial ED EKG: SINUS TACHYCARDIA @124BPM, RBBB, ARTIFACT PRESENT Prior EKG: unchanged (09/12/17) Hand-Off Endorsed To: Jonathan Castro MD Endorsed Time: 2240 Pending: CT (Livier RIOS,Rhoda Joseph) Radiology Impression: PATIENT: SERENA TAN PRESENT AGE: 82 PATIENT ACCOUNT NO: [id number] : 36 LOCATION: [facility] ORDERING PHYSICIAN: Jonathan Castro MD SERVICE DATE: 11/05/17-3418 EXAM TYPE : CAT - CT ABD & PELVIS W/O IV CONTRAS; CT CHEST WO IV CONTRAST EXAMINATION: CT CHEST, ABDOMEN AND PELVIS WITHOUT CONTRAST CLINICAL INFORMATION: Nausea and vomiting. Hypoxia, tachycardia.. COMPARISON: Chest CT dated 12/13/2016. CT pelvis dated 09/17/2016, CT abdomen and pelvis dated 08/26/2013. TECHNIQUE: Multidetector volumetric imaging was performed from the thoracic inlet through the pubic symphysis without contrast. Sagittal and coronal reformatted images were obtained on the technologist workstation. Total exam dose-length product 1596 mGy-cm FINDINGS: CHEST: LUNGS: There are streaky areas of bandlike consolidation in the posterior lung bases bilaterally. An ovoid pulmonary nodule at the lateral aspect of the right lung base measuring 1.0 cm is not significantly changed from 12/13/2016, though perhaps slightly enlarged from 2013. MEDIASTINUM: Normal heart size. No pericardial effusion. No hilar or mediastinal lymphadenopathy. There are coronary artery calcifications. Aortic valve calcifications are noted. VASCULAR: The thoracic aorta is normal in contour and caliber. ABDOMEN/PELVIS: LIVER, GALLBLADDER, AND BILIARY TREE: The liver is normal in size, shape, and attenuation. No focal hepatic lesion or biliary ductal dilatation is present. The gallbladder is unremarkable with no evidence of radiopaque gallstones, gallbladder wall thickening, or obvious pericholecystic inflammatory changes. PANCREAS: Normal; no mass or surrounding fluid. SPLEEN: Normal size. No focal lesion. ADRENAL GLANDS: Normal; no mass. KIDNEYS AND URETERS: Stable right inferior pole renal cyst. The kidneys are otherwise normal in size, shape, and attenuation. No hydronephrosis, hydroureter , or calculi. GASTROINTESTINAL TRACT: Stomach and small bowel non-dilated. No colonic wall thickening or pericolonic inflammatory changes. There is sigmoid diverticulosis without diverticulitis. The appendix is not definitively identified but there is no focal right lower quadrant inflammatory stranding to suggest acute appendicitis. ABDOMINAL WALL: There is an enlarging midline fat- containing periumbilical hernia with the hernia sac now measuring 5.4 x 3.3 cm in greatest transaxial dimensions without imaging evidence of inflammation. LYMPHOVASCULAR STRUCTURES: No lymphadenopathy. The aorta is unremarkable. BLADDER: No focal mass or wall thickening seen. No bladder calculi. PELVIC VISCERA: The uterus is not well demonstrated and possibly surgically absent. No suspicious adnexal masses. OSSEOUS STRUCTURES: There is severe multilevel spondylosis in the lumbar spine. 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 There is moderate arthritis of the bilateral glenohumeral joints. IMPRESSION: 1. Streaky areas of bandlike consolidation in the posterior lung bases bilaterally which are nonspecific but most suspicious for atelectasis. 2. Enlarging midline fat-containing periumbilical hernia without evidence of active inflammation. 3. Sigmoid diverticulosis without diverticulitis. 4. Ovoid pulmonary nodule at the lateral right lung base, unchanged from the most recent prior CT though perhaps slightly enlarged from 2013. This is most likely benign given relative stability over time. 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 DICTATED BY: Brad Ta MD DATE/ TIME DICTATED:11/06/17111 CREDIT REFERENCE CLERK:GAGE DATE/TIME TRANSCRIBED: 11/06/17111 CONFIDENTIAL, DO NOT COPY WITHOUT APPROPRIATE AUTHORIZATION. 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 Patient has an elevated d-dimer and presented tachycardic and hypoxic. However we are unable to obtain an appropriate IV to follow through with the CTA of the chest to rule out PE. Feel the patient should be admitted given her presentation and advanced age. VQ scan can be considered tomorrow. 11/06/2017 12:01:23 AM patient's case discussed with Dr. Ellison who has requested a CAT scan of the abdomen based on the presenting complaint. She also feels that we should continue to try for a peripheral IV and CTA of the chest. She agrees with coverage with Lovenox or heparin until the PE can more definitively be ruled out. (Gloria ABREU,Jonathan Azul) Departure Departure Disposition: STILL A PATIENT Departure Forms: Customer Survey General Discharge Information (Livier RIOS,Rhoda Joseph) Departure Condition: Stable Clinical Impression Primary Impression: Hypoxia Secondary Impressions: Nausea & vomiting Qualifiers: Vomiting type: unspecified Vomiting Intractability: unspecified Qualified Code: R11.2 - Nausea with vomiting, unspecified Tachycardia Referrals: Salma ABREU,Wilman Romero (PCP/Family) Admission Note Spoke With: Scot ABREU,Chidi Documentation of Exam: Documentation of any treatments & extenuating circumstances including Concerns Regarding Discharge (functional status, medication knowledge or non-compliance, living conditions, etc.) that warrant an admission rather than observation: Patient presented to the emergency department with hypoxia and tachycardia. She has an elevated d-dimer raising the concern for pulmonary embolism. Given her advanced age and medical comorbidities I do not feel she is a good candidate for outpatient management at this time. In fact patient seems to desaturate even with minimal exertion here in the emergency department. I feel if outpatient treatment were attempted that she would experience worsening hypoxia potentially respiratory failure. I feel she now requires hospitalization for follow-up VQ scan to rule out pulmonary embolism (we have been unable to obtain IV access for a CTA) along with consideration of pulmonary consultation given the unclear nature of this patient's etiology. Patient's pulse oximetry should be monitored and oxygen supplemented as needed. Serial troponins should be obtained and cardiology consultation considered if occult coronary artery disease is of concern. I also feel that her treatment and recovery will be potentially prolonged and complicated. I feel she will require a multiple day hospitalization. PA/RESTAURANT SHIFT LEADER Co-Sign Statement Statement: ED Attending supervision documentation- [x] I saw and evaluated the patient. I have also reviewed all the pertinent lab results and diagnostic results. I agree with the findings and the plan of care as documented in the PA's/RESTAURANT SHIFT LEADER's documentation. Patient presented for evaluation of altered mental status. The patient herself is a poor historian and denies complaints currently. Her son however is concerned she might have urinary tract infection as this typically makes her confused. Physical examination reveals a comfortable appearing woman who is calm and conversant. Patient does appear a bit confused but not delirious. Remaining physical examination is unremarkable. [] I have reviewed the ED Record and agree with the PA's/RESTAURANT SHIFT LEADER's documentation. [] Additions or exceptions (if any) to the PAs/RESTAURANT SHIFT LEADER's note and plan are summarized below: [] (Gloria ABREU,Jonathan Azul)
--- NOTE | 2017-11-05 20:54 | RADIOLOGY REPORT ---
EXAMINATION: XR PORTABLE CHEST CLINICAL INFORMATION: Pneumonia COMPARISON: 09/12/2017 chest x-ray TECHNIQUE: Portable frontal view of the chest was obtained. FINDINGS: Stable cardiomediastinal silhouette with borderline cardiac size. Low lung volumes due to hypoventilatory exam. The lungs are clear. No sizable pleural effusion or pneumothorax. Degenerative changes of the shoulder joints noted. IMPRESSION: Stable chest x-ray without acute cardiopulmonary findings.
[2017-11-05 21:10] LABS: ABSOLUTE BASOPHIL COUNT 0 /CUMM (0.0-0.2); ABSOLUTE EOSINOPHIL COUNT 0.1 /CUMM (0.0-0.7); ABSOLUTE GRANULOCYTE CT 10.6 /CUMM (1.4-6.5); ABSOLUTE LYMPH COUNT 0.3 /CUMM (1.2-3.4); ABSOLUTE MONOCYTE COUNT 0.3 /CUMM (0.10-0.60); BASOPHIL % 0 % (0.0-2.0); EOSINOPHIL % 0.6 % (0-5); HEMATOCRIT 46.4 % (37-47); MEAN CORPUSCULAR HGB 28.3 PG (27.0-31.0); MEAN CORPUSCULAR HGB CONC 31.6 G/DL (33.0-37.0); MEAN CORPUSCULAR VOLUME 89.6 FL (81.0-99.0); MEAN PLATELET VOLUME 9.3 FL (7.4-10.4); PLATELET COUNT 247 /CUMM (130-400); RBC DISTRIBUTION WIDTH 17.4 % (11.5-14.5); RED BLOOD CELL CT 5.18 /CUMM (4.20-5.40); WHITE BLOOD CELL COUNT 11.3 /CUMM (4.8-10.8)
[2017-11-05 21:28] LABS: GRANULOCYTE % 94.2 % (42.2-75.2)
[2017-11-05] MEDS ORDERED: CALCIUM CARBON600 M1 PO (21:31)
[2017-11-05] MEDS ORDERED: IPRAT-ALBUT 0.5-3 ML INH (21:39)
[2017-11-05] MEDS ORDERED: PROVENTIL HFA6.7 GM INH (21:41)
[2017-11-05] MEDS ORDERED: METAMUCIL POWD174 GM PO (21:42)
--- NOTE | 2017-11-06 01:30 | CT SCAN REPORT ---
EXAMINATION: CT CHEST, ABDOMEN AND PELVIS WITHOUT CONTRAST CLINICAL INFORMATION: Nausea and vomiting. Hypoxia, tachycardia.. COMPARISON: Chest CT dated 12/13/2016. CT pelvis dated 09/17/2016, CT abdomen and pelvis dated 08/26/2013. TECHNIQUE: Multidetector volumetric imaging was performed from the thoracic inlet through the pubic symphysis without contrast. Sagittal and coronal reformatted images were obtained on the technologist workstation. Total exam dose-length product 1596 mGy-cm FINDINGS: CHEST: LUNGS: There are streaky areas of bandlike consolidation in the posterior lung bases bilaterally. An ovoid pulmonary nodule at the lateral aspect of the right lung base measuring 1.0 cm is not significantly changed from 12/13/2016, though perhaps slightly enlarged from 2012. MEDIASTINUM: Normal heart size. No pericardial effusion. No hilar or mediastinal lymphadenopathy. There are coronary artery calcifications. Aortic valve calcifications are noted. VASCULAR: The thoracic aorta is normal in contour and caliber. ABDOMEN/PELVIS: LIVER, GALLBLADDER, AND BILIARY TREE: The liver is normal in size, shape, and attenuation. No focal hepatic lesion or biliary ductal dilatation is present. The gallbladder is unremarkable with no evidence of radiopaque gallstones, gallbladder wall thickening, or obvious pericholecystic inflammatory changes. PANCREAS: Normal; no mass or surrounding fluid. SPLEEN: Normal size. No focal lesion. ADRENAL GLANDS: Normal; no mass. KIDNEYS AND URETERS: Stable right inferior pole renal cyst. The kidneys are otherwise normal in size, shape, and attenuation. No hydronephrosis, hydroureter, or calculi. GASTROINTESTINAL TRACT: Stomach and small bowel non-dilated. No colonic wall thickening or pericolonic inflammatory changes. There is sigmoid diverticulosis without diverticulitis. The appendix is not definitively identified but there is no focal right lower quadrant inflammatory stranding to suggest acute appendicitis. ABDOMINAL WALL: There is an enlarging midline fat-containing periumbilical hernia with the hernia sac now measuring 5.4 x 3.3 cm in greatest transaxial dimensions without imaging evidence of inflammation. LYMPHOVASCULAR STRUCTURES: No lymphadenopathy. The aorta is unremarkable. BLADDER: No focal mass or wall thickening seen. No bladder calculi. PELVIC VISCERA: The uterus is not well demonstrated and possibly surgically absent. No suspicious adnexal masses. OSSEOUS STRUCTURES: There is severe multilevel spondylosis in the lumbar spine. 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 There is moderate arthritis of the bilateral glenohumeral joints. IMPRESSION: 1. Streaky areas of bandlike consolidation in the posterior lung bases bilaterally which are nonspecific but most suspicious for atelectasis. 2. Enlarging midline fat-containing periumbilical hernia without evidence of active inflammation. 3. Sigmoid diverticulosis without diverticulitis. 4. Ovoid pulmonary nodule at the lateral right lung base, unchanged from the most recent prior CT though perhaps slightly enlarged from 2013. This is most likely benign given relative stability over time. 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
--- NOTE | 2017-11-06 02:59 | History & Physical ---
[facility]258: General Information and HPI MD Statement: I have seen and personally examined SERENA TAN and documented this H&P. The patient is a 82 year old F who presented with a patient stated chief complaint of [nausea,vomitting,AMS]. Source of Information: patient, family, W10 Exam Limitations: confusion History of Present Illness: 82-year-old female with past medical history of hypertension, hyperlipidemia, asthma, GERD, hypothyroidism, recurrent UTI, gout, morbid obesity, history of seizures came to [facility] from assisted living facility with complaints of nausea, vomiting and altered mental status for 1 day. Patient is confused and other review of system was unobtainable. We spoke to her son over phone who said that she has been having multiple episodes of nausea and vomiting since morning with a temperature of 100.3 and patient looked more confused as per assisted living facility. We couldn't talk to the nurse in charge of her in her facility. 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 Camacho states that approximately a year and a half ago she experienced a back infection of unknown origin that required long-term antibiotic treatment while an inpatient at both [facility] and [facility]. She is not sure of the origin of this infection or the bacteria that was being treated at that time. She does state however she was released from the hospital infection free. History of MRSA: No History of VRE: No History of CDIFF: No Influenza Vaccine: 09/10/17 Surgical History Surgical History: appendectomy, hysterectomy, L KNEE REPLACEMENT TONSILECTOMY Past Family/Social History Family History Relations & Conditions if any FATHER FH: colon cancer MOTHER Valvular heart disease SISTER FH: colon cancer Psychosocial History Who Do You Live With? self Services at Home: None Primary Language: Lithuanian ETOH Use: denies use Illicit Drug Use: denies illicit drug use Functional Ability ADLs Independent: dressing, eating, toileting, bathing. Ambulation: walker IADLs Independent: food prep, telephone, medication admin. Needs Assist: housework, transportation. Review of Systems Review of Systems Constitutional: Reports: no symptoms. Comments Review of system-unobtainable Exam & Diagnostic Data Last 24 Hrs of Vital Signs/I&O Vital Signs Date Time Temp Pulse Resp B/P B/P Pulse O2 O2 Flow FiO2 Mean Ox Delivery Rate 11/06 0420 99.1 84 20 122/60 94 Nasal 2.0L Cannula 11/06 0308 99.8 87 20 117/58 97 Nasal 2.0L Cannula 11/06 0159 101.2 128 22 108/78 97 Room Air 11/05 2256 99.7 94 18 168/67 95 Nasal 2.0L Cannula 11/05 2130 98 Nasal 2.0L Cannula 11/05 1952 98.9 128 20 158/75 85 Room Air Room Air Intake & Output 11/06 0800 11/06 0000 11/05 1600 Intake Total Output Total Balance Patient 250 lb Weight Weight Estimated Measurement Method Physical Exam General Appearance Alert, Cooperative, Mild Distress, ORIENTEDX 2 Cardiovascular Normal S1, Normal S2, No Murmurs Lungs Clear to Auscultation Abdomen Soft, RUQ TENDERNESS.OBESE ABDOMEN Neurological Strength at 5/5 X4 Ext, Normal Tone, Sensation Intact, Cranial Nerves 3-12 NL Extremities B/L CALF TENDERNESS Vascular Normal Pulses Last 24 Hrs of Labs/Daryn: Laboratory Tests 11/05/17 2330: Lactic Acid 1.0 11/05/17 2220: Urine Color YEL, Urine Clarity CLEAR, Urine pH 6.0, Ur Specific [place] 1.020, Urine Protein 30 H, Urine Ketones TRACE H, Urine Nitrite NEG, Urine Bilirubin NEG, Urine Urobilinogen 0.2, Ur Leukocyte Esterase NEG, Ur Microscopic SEDIMENT EXAMINED, Urine RBC 3-5, Urine WBC RARE, Ur Epithelial Cells FEW, Hyaline Casts FEW H, Urine Mucus RARE, Urine Hemoglobin TRACE-INTACT, Urine Glucose NEG 11/05/172054: Anion Gap 13, Estimated GFR > 60, BUN/Creatinine Ratio 22.2, Glucose 138 H, Lactic Acid 1.5, Calcium 9.3, Total Bilirubin 0.9, AST 24, ALT 23, Alkaline Phosphatase 149 H, Troponin I 0.02, Total Protein 7.6, Albumin 4.8, Globulin 2.8, Albumin/Globulin Ratio 1.7, Amylase 39, Lipase 56, D-Dimer High Sensitivty 597 H, CBC w Diff NO MAN DIFF REQ, RBC 5.18, MCV 89.6, MCH 28.3, RDW 17.4 H, MPV 9.3, Gran % 94.2 H, Lymphocytes % 2.8 L, Monocytes % 2.4, Eosinophils % 0.6, Basophils % 0, Absolute Granulocytes 10.6 H, Absolute Lymphocytes 0.3 L, Absolute Monocytes 0.3, Absolute Eosinophils 0.1, Absolute Basophils 0, PUBS MCHC 31.6 L Microbiology 11/06 030 LOWER RESP: Respiratory Culture - COLB 11/06 306 LOWER RESP: Gram Stain - COLB 11/06 0258 BLOOD: Blood Culture - CAN Cancelled: AEROBIC BOTTLE QNS, NO ANAEROBIC BOTTLE COLLECTED 11/06 025 BLOOD: Blood Culture - RECD 11/05 2220 URINE ROUT: Urine Culture - RECD 11/05 210 NASOPHARYN: Influenza Virus A & B Rapid Smear - COMP 11/05 2023 URINE ROUT: Legionella Antigen - COMP 11/05 2023 URINE ROUT: Streptococcus pneumoniae Antigen (M - COMP Diagnostic Data EKG Results Sinus rhythm, right bundle branch block CXR Results Stable cardiomediastinal silhouette with borderline cardiac size. Low lung volumes due to hypoventilatory exam. The lungs are clear. No sizable pleural effusion or pneumothorax. Degenerative changes of the shoulder joints noted Other Results CT abdomen and pelvis and CT chest IMPRESSION: 1. Streaky areas of bandlike consolidation in the posterior lung bases bilaterally which are nonspecific but most suspicious for atelectasis. 2. Enlarging midline fat-containing periumbilical hernia without evidence of active inflammation. 3. Sigmoid diverticulosis without diverticulitis. 4. Ovoid pulmonary nodule at the lateral right lung base, unchanged from the most recent prior CT though perhaps slightly enlarged from 2013. This is most likely benign given relative stability over time. 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 Assessment/Plan Assessment: 82-year-old female with past medical history of hypertension, hyperlipidemia, asthma, GERD, hypothyroidism, recurrent UTI, gout, morbid obesity, history of seizures came to [facility] from assisted living facility with complaints of nausea, vomiting and altered mental status for 1 day admitted in [facility] for further evaluation and management. Problem list 1. Hypoxia-rule out PE 2. Community-acquired pneumonia/aspiration pneumonia. 3. Hypertension 4. Hyperlipidemia 6. Hypothyroidism 7. Asthma Assessment and plan * Given the patient temperature 101.2, tachycardia 128, admission saturation her first suspicion is PE we would like to do a CTA and ultrasound Doppler of both legs. Patient oxygenation improved upon 2 L of nasal oxygen. Hypoxia can be also secondary due to community-acquired pneumonia/aspiration pneumonia given that patient had multiple episodes of nausea and vomiting today. We will like to treat her with azithromycin and ceftriaxone. TRC nebulization. Continue oxygen. Will give normal saline at 75 mL per hour. Mucinex twice a day. We will send blood culture, sputum culture, rapid flu, urine Legionella strep antigen. * We will continue her home medication Lipitor 20 mg, levothyroxine. * Patient complained of pain below her right breast and right upper quadrant more towards the back. We will give her Tylenol, Roxicodone. If the patient has persistent right upper quadrant we will take an ultrasound in a.m. * We will hold her Lasix, gabapentin, amlodipine, duloxetine. * GI prophylaxis-Protonix 40 mg daily * Code-full code * DVT prophylaxis-Lovenox Please call her as still living facility in a.m. and get a history and confirm her medications. As Ranked By This Provider Problem List: 1. AMS 2. Nausea & vomiting Qualifiers Vomiting type: unspecified Vomiting Intractability: unspecified Qualified Code: R11.2 - Nausea with vomiting, unspecified Core Measures/Misc (07/22) Acute Coronary Syndrome ACS Diagnosis: No Congestive Heart Failure Congestive Heart Failure Diagnosis No Cerebrovascular Accident CVA/TIA Diagnosis: No VTE (View Protocol) VTE Risk Factors Age>40 No Mechanical VTE Prophylaxis d/t Other No VTE Pharm Prophylaxis d/t Other Sepsis (View protocol) Sepsis Present: No Shonda Andrews 11/06/17 0624: General Information and HPI Allergies/Medications Home Med list Acetaminophen (Arthritis Pain Relief) 650 MG TABLET.ER 1 TAB PO PRN PAIN ( Reported) Albuterol Sulfate (Proair Hfa) 90 MCG HFA.AER.AD 2 PUF INH Q4H PRN WHEEZING ( Reported) Albuterol Sulfate (Proventil Hfa) 90 MCG HFA.AER.AD 2 PUF INH Q4-PRN WHEEZING (Reported) Allopurinol 300 MG TABLET 1 TAB PO DAILY GOUT (Reported) Alprazolam 0.25 MG TABLET 1 TAB PO BID ANXIETY (Reported) Amlodipine Besylate 5 MG TABLET 1 TAB PO DAILY BP (Reported) Calcium (Elemental-Fr Calcarb) (Calcium Carbonate) 600 MG CALCIUM (1,500 MG) TABLET 1 TAB PO DAILY SUPPLEMENT (Reported) Cholecalciferol (Vitamin D3) (Vitamin D) 1,000 UNIT TABLET 1 TAB PO BID SUPPLEMENT (Reported) Cyanocobalamin (Vitamin B-12) 1,000 MCG TABLET 1 TAB PO DAILY SUPPLEMENT ( Reported) diphenhydrAMINE HCl (Benadryl) 25 MG CAPSULE 1 CAP PO PRN ITCHINESS (Reported ) Duloxetine HCl 60 MG CAPSULE.DR 1 CAP PO DAILY NERVE PAIN (Reported) Ferrous Sulfate 325 MG (65 MG IRON) TABLET 1 TAB PO 1900 SUPPLEMENT (Reported ) Fluticasone Propionate 50 MCG/ACTUATION SPRAY.SUSP 1 SPRAY NASB DAILY ALLERGIES (Reported) Fluticasone Propionate (Flovent Hfa) 110 MCG/ACTUATION AER.W.ADAP 2 PUF INH BID RESPIRATORY (Reported) Furosemide 40 MG TABLET 1 TAB PO EOD DIURETIC (Reported) Furosemide 20 MG TABLET 1 TAB PO EOD DIURETIC (Reported) Gabapentin 300 MG CAPSULE 2 CAP PO TID NERVE PAIN (Reported) Guaifenesin (Rosalia-Tussin) (Unknown Strength) LIQUID (Unknown Dose) PO AD PRN MUCUS\\COUGH (Reported) Guaifenesin (Mucinex) 600 MG TAB.ER.12H 1 TAB PO BID COUGH Ipratropium/Albuterol Sulfate (Iprat-Albut 0.5-3(2.5) MG/3 Ml) 0.5 MG-3 MG (2.5 MG BASE)/3 ML AMPUL.NEB 1 UDC INH Q4 HRS NEEDED PRN WHEEZING (Reported) Levocetirizine Dihydrochloride 5 MG TABLET 1 TAB PO QPM ALLERGIES (Reported) Levothyroxine Sodium (Synthroid) 75 MCG TABLET 1 TAB PO DAILY THYROID ( Reported) Lovastatin 20 MG TABLET 1 TAB PO DAILY CHOLESTEROL (Reported) Omeprazole 20 MG CAPSULE. 1 CAP PO BID GI (Reported) Psyllium Husk/Aspartame (Metamucil Powder) 3.4 GRAM/5.8 GRAM POWDER 5 ML PO DAILY CONSTIPATION (Reported) Sennosides/Docusate Sodium (Senna S Tablet) 8.6 MG-50 MG TABLET 2 TAB PO QHS GI (Reported) Resident Review Statement Resident Statement: examined this patient, discussed with management internship Other Findings: Ms Tan is a 82 year old woman w/ a PMHx of HTN, Asthma, ? RA, hypothyroidism was brought in from [facility] with a chief concern of altered mental status, nausea vomiting and abdominal discomfort. She was last known to be normal 1 day ago, when she was found to be in her usual state of health. She was unable to give any history, and some part of the history was occurring from the son who stated that Ms Tan had fever, 100.4 the a.m. of presentation to the hospital. She is not much active at baseline, and uses a wheelchair to get around. She also had nausea and vomiting and associated abdominal discomfort, that began in the a.m. after which she did not have her breakfast or lunch. She did not have any diarrhea. History from [facility] could not be obtained to confirm the exact history. Other review of systems have been limited, secondary to Ms Tan's altered mentation. At the time of admission, temperature 98.9, which went up to 101.2, pulse rate 128, respiration 20, blood pressure 158/75, pulse ox 85% on room air, which improved to 98% on supplemental oxygen. On examination, she was lethargic, sleepy and was alert to place only. Heart examination revealed systolic murmur w / no radiation. Lung examination did not have any abnormal lung sounds; tenderness in right hypochondriac region on abdominal examination. She also had swelling of left lower extremity, with 3-5 cm greater than right, and had tenderness on palpation. Neurological examination was limited. Pertinent lab findings-WBC 11.3 (with 94.2% granulocytosis, indicating an acute infection), hemoglobin 14.7, platelets 247. Bicarbonate 34, renal function BUN 20, creatinine 0.9. Lactic acid 1.5. AST 24, ALT 23, alkaline phosphatase 149 (elevated likely from biliary stasis). Cardiac enzymes-troponin 0.02. Urinalysis was normal. However d-dimer was elevated to 593. CAT scan of the chest was done which revealed streaky bandlike opacities, and pulmonary nodule. QTC revealed normal sinus rhythm, normal axis, WA 78, QTC 546. Last echocardiogram revealed-ejection fraction 70% with diastolic dysfunction that was done in 2012. Etiology in her case is very unclear, since she has altered mental status and hypoxia likely from an acute focus of infection or from PE. CAT scan findings were not very suggestive of pneumonia, but considering the activity in her presentation, would be prudent to cover with ceftriaxone and azithromycin for community-acquired pneumonia. She also had elevated d-dimer for which a CTA was attempted, but could not be done due to intravenous access issues. She did not have any EKG findings suggestive of right heart strain, but these EKG changes are neither sensitive not specific. Would likely do a echocardiogram, to see right heart strain. Reattempt at doing CT or a VQ scan. Since she has swelling of lower extremities, and ultrasound could be done to rule out DVT. In regards to slightly elevated alkaline phosphatase, and right upper quadrant tenderness ( CAT scan was unremarkable), could be followed closely if she develops any biliary pathology. For now, she could be treated with antibiotics and full dose of Lovenox, pending further imaging. Plan: #1 hypoxia, altered mental status- would continue to attempt to get radiological tests done. Continue antibiotics pending culture and antigen test results. Check CBC in the a.m. Would contact the facility to get a clear history. Follow blood cultures. Check Echocardiogram. #2 hypothyroidism- continue levothyroxine. Housekeeping #1 DVT prophylaxis-full code, as per the patient's son who is the POA. He would axis the advanced directives or living will and inform us of the CODE STATUS. #2 Diet- NPO for now. Medication reconciliation: Allopurinol-held Alprazolam -held Amlodipine-held Duloxetine-held Furosemide-held Gabapentin-held Levothyroxine-continued Omeprazole-continue Scot ABREU, [facility] 11/06/17 0636: Attending Review Statement Attending Statement Attending Statement: examined this patient, discuss w/resident/PA/RESIDENTIAL COLLECTIONS, agreed w/resident/PA/RESIDENTIAL COLLECTIONS, reviewed images, amended to note Attending Assessment/Plan: 82 yo morbidly obese F, a resident of [facility], with h/o HTN, borderline DM, RA, hypothyroidism, GERD, well controlled asthma, recurrent UTIs, dementia, last admitted to [facility] (Sep 2017) for asthma exacerbation/ bronchitis, is brought in today for nausea, vomiting, right flank pain, fever and worsening of baseline mental status per son. Limited history provided by son. Patient c/o pain everywhere that we point out at. She c/o nausea, but appears comfortable. She does have right shoulder pain which seems to be chronic. She is mostly wheelchair bound, and needs assistance to go the bathroom. In the ER, she was noted to be hypoxic to 85% RA --> 95% on 2L, Tmax 101.2, tachycardic to 90-100's, BP 122/60. Exam: awake, alert, oriented x2, dry mucous membranes, Chest clear, Heart S1S2 regular tachycardic, systolic murmur+, Abdomen: soft, some right upper quadrant tenderness, BS+, Back: right flank tenderness, LE: Right leg is shortened compared to left. Left calf is more swollen compared to right with calf tenderness+. Peripheral pulses are equal. Labs: WBC 11.3, D-dimer 597, bicarb 34, BUN20, creat 0.9, lactic acid 1.5, trop neg, TSH normal. UA proteinuria, otherwise clear. CXR: stable. CT CAP without contrast: streaky areas of bandline consolidation in posterior lung bases bilaterally atelectasis, enlarging midline fat containing periumbilical hernia, sigmoid diverticulosis, pulmonary nodules lateral right lung base unchanged. EKG: sinus tachycardia, RBBB, Qtc 546. Echo (2013): EF 70%. Assessment and plan: 1. Altered mental status confused more than her baseline 2. Acute hypoxic respiratory failure 3. SIRS 4. Community acquired pneumonia, cannot rule out aspiration 5. Clinical suspicion for PE given elevated D-dimer and moderate probability on Well's score 6. Dementia - Admit to general medicine - TRC nebs, panculture, check urine legionella and strep Ag - IV ceftriaxone and azithro for now for pneumonia, no evidence of UTI - Patient was to get a CTA in ER, however, RN could not get adequate access. - Plan to do CTA or VQ scan in AM after obtaining adequate access - LE dopplers - Lovenox therapeutic dose 1.0 mg/kg body weight BID - NPO, swallow eval in AM - Gentle IV hydration, anti-emetics - Hold sedative meds and anti-hypertensives - Repeat Echo - RUQ pain seems muscular - no CT evidence of nephrolithiasis or gall bladder stones. LFTs are normal. DVT ppx Lovenox. Full code (as mentioned to us by son) please confirm as patient had a DNR/I previously. Please confirm CMR in AM.
[2017-11-06 04:20] VITALS: BP 122/60
[2017-11-06 06:00] VITALS: BP 122/60
--- NOTE | 2017-11-06 06:37 | Admission Certification ---
Admission Certification Certification Statement - As attending physician, I certify that at the time of - admission, based on clinical presentation, severity of - symptoms, need for further diagnostic testing and - therapeutic interventions, and risk of adverse outcomes - without in-hospital treatment, in my clinical assessment, - this patient requires an acute hospital stay for a minimum - of two nights or longer. I have also considered psychsocial - factors such as support system, advanced age, financial - issues, cognitive issues, and failed out-patient treatments, - past re-admission history, safety of patient, and lack of - compliance as applicable. Specific rationale supporting this admission is: Acute hypoxic respiratory failure, community acquired pneumonia, possible PE.
--- NOTE | 2017-11-06 07:51 | PN- Housestaff ---
Alejandrina Redmond 11/06/17 0734: Subjective Follow-up For: Hypoxia-rule out PE Community-acquired pneumonia/aspiration pnEumonia. Hypertension Hyperlipidemia Hypothyroidism Asthma Subjective: Patient was alert and oriented x 3 this morning, however could not recall what happened and why she was brought here. Patient denied any discomfort but only soreness of RUQ ab. Patient is breathing comfortably on 2LNC. patient admitted that she had not been eating for the last 2 days, and had N/V with orange vomitus this morning, however no longer N/V now. Review of Systems Constitutional: Reports: see HPI. Objective Last 24 Hrs of Vital Signs/I&O Vital Signs Date Time Temp Pulse Resp B/P B/P Pulse O2 O2 Flow FiO2 Mean Ox Delivery Rate 11/06 0420 99.1 84 20 122/60 94 Nasal 2.0L Cannula 11/06 0308 99.8 87 20 117/58 97 Nasal 2.0L Cannula 11/06 0159 101.2 128 22 108/78 97 Room Air 11/05 2256 99.7 94 18 168/67 95 Nasal 2.0L Cannula 11/05 2130 98 Nasal 2.0L Cannula 11/05 195 98.9 128 20 158/75 85 Room Air Room Air Intake & Output 11/06 0800 11/06 0000 11/05 1600 Intake Total Output Total Balance Number 1 Bowel Movements Patient 114.334 kg 113.398 kg Weight Weight Bed scale Estimated Measurement Method Physical Exam General Appearance: Alert, Oriented X3, Cooperative, No Acute Distress Cardiovascular: distant heart sound due to obesity Lungs: Clear to Auscultation, Normal Air Movement Abdomen: Soft, RUQ tenderness/soreness only upon palpation Neurological: Normal Speech Extremities: Normal Pulses, RLE slighted more swelling than LLE, trace edema Current Medications: Current Medications Sig/Esme Start time Last Medication Dose Route Stop Time Status Admin Acetaminophen 650 MG Q8P PRN 11/06 0400 AC PO Atorvastatin Calcium 20 MG 1700 11/06 1700 AC PO Azithromycin 500 MG Q24H 11/07 0330 CAN Sodium Chloride 250 ML IV Azithromycin 500 MG 0200 11/07 0200 CAN Sodium Chloride 250 ML IV Azithromycin 500 MG 0200 11/07 0200 AC Sodium Chloride 250 ML IV Azithromycin 500 MG ONCE ONE 11/06 0230 DC 11/06 Sodium Chloride 250 ML IV 11/06 0329 0332 Cefazolin Sodium 0 .STK-MED ONE 11/06 0306 DC .ROUTE Ceftriaxone Sodium 1,000 MG Q24H 11/07 0300 AC IV Ceftriaxone Sodium 0 .STK-MED ONE 11/06 0306 DC .ROUTE Ceftriaxone Sodium 1,000 MG ONCE ONE 11/06 0230 DC 11/06 IV 11/06 0231 0304 Enoxaparin Sodium 110 MG BID 11/06 1000 AC SC Enoxaparin Sodium 0 .STK-MED ONE 11/06 0001 DC SC Enoxaparin Sodium 0 .STK-MED ONE 11/06 0001 DC SC Enoxaparin Sodium 110 MG ONCE ONE 11/05 2345 DC 11/06 SC 11/05 2346 0014 Ferrous Sulfate 325 MG DAILY 11/07 1000 AC PO Guaifenesin 600 MG BID 11/06 1000 AC PO Levothyroxine Sodium 0.075 MG DAILY AC 11/06 0700 AC PO Lidocaine 1 PAT Q24H 11/06 0700 AC EXT Oxycodone HCl 5 MG Q8P PRN 11/06 0500 AC PO Pantoprazole Sodium 40 MG DAILY 11/06 0530 AC IV Sodium Chloride 1,000 ML Q13H 11/06 0400 AC IV Last 24 Hrs of Lab/Daryn Results Last 24 Hrs of Labs/Mics: Laboratory Tests 11/05/17 2330: Lactic Acid 1.0 11/05/170: Urine Color YEL, Urine Clarity CLEAR, Urine pH 6.0, Ur Specific [place] 1.020, Urine Protein 30 H, Urine Ketones TRACE H, Urine Nitrite NEG, Urine Bilirubin NEG, Urine Urobilinogen 0.2, Ur Leukocyte Esterase NEG, Ur Microscopic SEDIMENT EXAMINED, Urine RBC 3-5, Urine WBC RARE, Ur Epithelial Cells FEW, Hyaline Casts FEW H, Urine Mucus RARE, Urine Hemoglobin TRACE-INTACT, Urine Glucose NEG 11/05/172054: Anion Gap 13, Estimated GFR > 60, BUN/Creatinine Ratio 22.2, Glucose 138 H, Lactic Acid 1.5, Calcium 9.3, Total Bilirubin 0.9, AST 24, ALT 23, Alkaline Phosphatase 149 H, Troponin I 0.02, Total Protein 7.6, Albumin 4.8, Globulin 2.8, Albumin/Globulin Ratio 1.7, Amylase 39, Lipase 56, TSH &T3 &Free T4 Intrp 0.647, D-Dimer High Sensitivty 597 H, CBC w Diff NO MAN DIFF REQ, RBC 5.18, MCV 89.6, MCH 28.3, RDW 17.4 H, MPV 9.3, Gran % 94.2 H, Lymphocytes % 2.8 L, Monocytes % 2.4, Eosinophils % 0.6, Basophils % 0, Absolute Granulocytes 10.6 H , Absolute Lymphocytes 0.3 L, Absolute Monocytes 0.3, Absolute Eosinophils 0.1, Absolute Basophils 0, PUBS MCHC 31.6 L Microbiology 11/06 030 LOWER RESP: Respiratory Culture - COLB 11/06 306 LOWER RESP: Gram Stain - COLB 11/06 025 BLOOD: Blood Culture - CAN Cancelled: AEROBIC BOTTLE QNS, NO ANAEROBIC BOTTLE COLLECTED 11/06 249 BLOOD: Blood Culture - RECD 11/05 2219 URINE ROUT: Urine Culture - RECD 11/05 2104 NASOPHARYN: Influenza Virus A & B Rapid Smear - COMP 11/05 2023 URINE ROUT: Legionella Antigen - COMP 11/05 2023 URINE ROUT: Streptococcus pneumoniae Antigen (M - COMP Assessment/Plan Assessment: Ms. Purcell is an 82-year-old female with past medical history of hypertension, hyperlipidemia, asthma, GERD, hypothyroidism, recurrent UTI, gout, morbid obesity, history of seizures presented to [place] [facility] from assisted living facility with complaints of nausea, vomiting and altered mental status for 1 day. Patient was confused on arrival and other review of system was unobtainable. The admitting team spoke to her son over phone who said that she had multiple episodes of nausea and vomiting since morning [employer] with a temperature of 100.3 and patient looked more confused as per assisted living facility. Nurse in charge of the patient care in SNF could not be reached. ER Course: hypoxic to 85% RA, Tmax 101.2, tachycardic to 90-100's, mild leukocytosis, elevated D-dimer. CTA could not be done due to inadequate IV access. CXR: Stable chest x-ray without acute cardiopulmonary findings. CT Chest/Ab: 1. Streaky areas of bandlike consolidation in the posterior lung bases bilaterally which are nonspecific but most suspicious for atelectasis. 2. Enlarging midline fat-containing periumbilical hernia without evidence of active inflammation. 3. Sigmoid diverticulosis without diverticulitis. 4. Ovoid pulmonary nodule at the lateral right lung base, unchanged from the most recent prior CT though perhaps slightly enlarged from 2013. This is most likely benign given relative stability over time. 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 Problem list & Hospital Course: #Hypoxia-rule out PE #Community-acquired pneumonia/aspiration pneumonia. #Chronic medical conditions including Hypertension Hyperlipidemia Hypothyroidism Asthma Assessment: Patient's fever, tachycardia, dropped O2 sat would lead to differential dx including PE, CAP/Aspirational Pneumonia. As CTA could not be done and we are pending V/Q scan, patient should be treated as CAP/AP. Patient also had N/V and RUQ pain despite no hepatic/gallbladder findings on CT ab. - O2, TRC/Neb as needed, Mucinex - Gentle IVF - Started Azithro + Ceftriaxone - Started Lovenox pending PE rule out - Continued home meds including Lipitor, levothyroxine, iron - Pending V/Q scan or CTA if doable. - Would do U/S RUQ - Pain with Tylenol, roxicodone. - GI protected by Protonix IV DVT PPX Lovenox + ALPS NPO for now 2/2 aspiration risk Full Code Problem List: 1. HTN (hypertension) 2. Hyperlipidemia 3. Hypoxia 4. Nausea & vomiting Pain Ratin Pain Location: RUQ pain 3/10 only when pressing Pain Goal: Pain 4 or less Pain Plan: see AP Tomorrow's Labs & Rationales: CBC/BEP Darling Sandoval 11/06/17 1146: Attending MD Review Statement Attending Statement Attending MD Statement: examined this patient, discuss w/resident/PA/DIAGNOSTIC RADIOLOGIST, agreed w/resident/PA/DIAGNOSTIC RADIOLOGIST, discussed with family, reviewed EMR data (avail), discussed with nursing, discussed with case mgmt, reviewed images, amended to note Attending Assessment/Plan: Patient seen/examined bedside. Patient c/o RUQ pain, Had fever overnight, HR 94 BP 122/60 Spo2 94 on 2l nc. Imaging and labs reviewed Patient admitted to inpatient medical services Assessment and plan: 1. Altered mental status confused more than her baseline 2. Acute hypoxic respiratory failure 3. Possible sepsis 4. Community acquired pneumonia, cannot rule out aspiration 5. Clinical suspicion for PE given elevated D-dimer and moderate probability on Well's score. 6. Dementia Plan is to continue with antibiotics iv ceftriaxone and azithromycin, Oxygen supplemetation, TRCs, LA 1.0, CTA r/o PE. She is on empiric lovenox as per admitting physician. NPO , obtain speech/swallow if cannot pass bedside test. cont rest of home meds. cont supportive care.. gi/dvt prophylaxis
--- NOTE | 2017-11-06 08:34 | ULTRASOUND REPORT ---
EXAMINATION: US TRIPLEX OF LOWER EXTREMITIES, BILATERAL CLINICAL INFORMATION: Bilateral lower extremity swelling and tenderness COMPARISON: None TECHNIQUE: Color-flow triplex imaging with spectral analysis and compression Doppler were performed on the bilateral lower extremities. FINDINGS: Respiratory variation, normal compression and augmented flow are noted throughout the bilateral lower extremities. The visualized common femoral vein, superficial femoral vein, profunda femoral vein, popliteal vein and midcalf peroneal and posterior tibial venous segments show no evidence of deep venous thrombosis. There is no Ho's cyst. IMPRESSION: Normal triplex scan without evidence of deep venous thrombosis involving the bilateral lower extremities.
--- NOTE | 2017-11-06 11:21 | ULTRASOUND REPORT ---
EXAMINATION: US ABDOMEN LIMITED CLINICAL INFORMATION: Right upper quadrant pain upon palpation.. COMPARISON: CT from 11/06/2017. TECHNIQUE: Real-time imaging of the right upper quadrant abdominal viscera. The study is limited by body habitus and bowel gas. FINDINGS: PANCREAS: Normal. LIVER: There is diffuse increased liver parenchymal echogenicity, consistent with hepatic steatosis. The liver is normal in size and contour. No biliary ductal dilatation. GALLBLADDER: The patient describes focal tenderness in the region of the gallbladder. The gallbladder is physiologically distended without evidence of stones, sludge, polyps, wall thickening or pericholecystic fluid. COMMON BILE DUCT: Normal in caliber measuring 0.5 cm in diameter. RIGHT KIDNEY: Normal. No hydronephrosis. No renal calculi or focal parenchymal lesions. The kidney measures 9.1 cm in maximum dimension. FREE FLUID: None. IMPRESSION: Hepatic steatosis. Unremarkable appearance of the gallbladder. Study is limited by body habitus and bowel gas.
[2017-11-06 12:26] LABS: ABSOLUTE BASOPHIL COUNT 0 /CUMM (0.0-0.2); ABSOLUTE EOSINOPHIL COUNT 0.1 /CUMM (0.0-0.7); ABSOLUTE GRANULOCYTE CT 4.9 /CUMM (1.4-6.5); ABSOLUTE LYMPH COUNT 0.9 /CUMM (1.2-3.4); ABSOLUTE MONOCYTE COUNT 0.5 /CUMM (0.10-0.60); BASOPHIL % 0.3 % (0.0-2.0); EOSINOPHIL % 1.3 % (0-5); GRANULOCYTE % 76.4 % (42.2-75.2); MEAN CORPUSCULAR HGB 29.6 PG (27.0-31.0); MEAN CORPUSCULAR VOLUME 89.8 FL (81.0-99.0); MEAN PLATELET VOLUME 9.1 FL (7.4-10.4); PLATELET COUNT 167 /CUMM (130-400); WHITE BLOOD CELL COUNT 6.4 /CUMM (4.8-10.8)
[2017-11-06 12:37] LABS: RED BLOOD CELL CT 3.84 /CUMM (4.20-5.40)
[2017-11-06 12:38] LABS: HEMATOCRIT 34.5 % (37-47)
[2017-11-06 13:50] VITALS: BP 130/60
--- NOTE | 2017-11-06 16:43 | CT SCAN REPORT ---
EXAMINATION: CT PULMONARY EMBOLISM STUDY CLINICAL INFORMATION: Altered mental status. Shortness of breath. COMPARISON: Same day chest CT. TECHNIQUE: Contiguous helical images of the chest were obtained following the administration of IV contrast. Multiplanar reconstructions were performed. MIPS were obtained and reviewed. DLP: 543 mGy-cm. CONTRAST: 95 mL of Optiray 350 were administered without incident. FINDINGS: The heart is of normal size. There is no pericardial effusion. The great vessels are unremarkable. Specifically, there is no pulmonary arterial filling defect. There is no CT evidence for pulmonary embolism. There are no chest wall masses. Review of lung windows demonstrates that there are neither pleural effusions nor pneumothoraces. There is multifocal linear atelectasis within the right middle lobe and both lower lobes. Within the lateral basal segment of the right lower lobe on image 292, there is a 9 mm nodular density. Within the posterior basal segment of the left lower lobe, there is a 1.5 cm nodular density. Limited evaluation of the upper abdomen demonstrates that the liver is of normal size and attenuation without focal lesions. Normal adrenal glands are identified. IMPRESSION: No CT evidence for pulmonary embolism. Multifocal atelectasis. Bilateral nodular densities. Consider correlation with a follow-up chest CT following treatment and/or resolution of symptoms to assure resolution of this appearance.
[2017-11-06 21:46] VITALS: BP 130/64
[2017-11-07 06:35] VITALS: BP 112/58
--- NOTE | 2017-11-07 08:59 | PN- Housestaff ---
RuyAlejandrina 11/07/17 0857: Subjective Follow-up For: Hypoxia-rule out PE Community-acquired pneumonia/aspiration pnEumonia. Hypertension Hyperlipidemia Hypothyroidism Asthma Subjective: Patient was sleeping when I entered. No overnight event. Review of Systems Constitutional: Reports: see HPI. Objective Last 24 Hrs of Vital Signs/I&O Vital Signs Date Time Temp Pulse Resp B/P B/P Pulse O2 O2 Flow FiO2 Mean Ox Delivery Rate 11/07 0635 98.5 74 20 112/58 98 Nasal 3.0L Cannula 11/07 0000 Nasal 2.0L Cannula 11/06 2146 98.8 77 20 130/64 96 Nasal 3.0L Cannula 11/06 1450 Nasal 3.0L Cannula 11/06 1445 99 Nasal 3.0L Cannula 11/06 1350 98.5 70 18 130/60 96 Nasal 3.0L Cannula Intake & Output 11/07 1600 11/07 0800 11/07 0000 Intake Total 240 240 Output Total 250 Balance -10 240 Intake, Oral 240 240 Output, Urine 250 Physical Exam General Appearance: Patient is sleeping Current Medications: Current Medications Sig/Esme Start time Last Medication Dose Route Stop Time Status Admin Acetaminophen 650 MG Q8P PRN 11/06 0400 AC PO Atorvastatin Calcium 20 MG 1700 11/06 1700 AC 11/06 PO 1551 Azithromycin 500 MG 0200 11/07 0200 AC 11/07 Sodium Chloride 250 ML IV 0146 Ceftriaxone Sodium 1,000 MG Q24H 11/07 0300 AC 11/07 IV 0251 Enoxaparin Sodium 40 MG DAILY 11/07 1000 AC SC Enoxaparin Sodium 30 MG BID 11/06 2200 CAN SC Enoxaparin Sodium 80 MG BID 11/06 2200 DC SC Enoxaparin Sodium 110 MG BID 11/06 1000 DC 11/06 SC 0850 Ferrous Sulfate 325 MG DAILY 11/07 1000 AC PO Guaifenesin 600 MG BID 11/06 1000 AC 11/06 PO 2122 Influenza Virus 0.5 ML ONCE ONE 11/06 0915 DC Vaccine IM 11/06 0916 Levothyroxine Sodium 0.075 MG DAILY AC 11/06 0700 AC 11/07 PO 0522 Lidocaine 1 PAT Q24H 11/06 0700 AC EXT Melatonin 3 MG AT BEDTIME 11/07 0215 AC 11/07 PO 0210 Oxycodone HCl 5 MG Q8P PRN 11/06 0500 AC PO Pantoprazole Sodium 40 MG DAILY 11/06 0530 AC 11/06 IV 0848 Sodium Chloride 1,000 ML Q13H 11/06 0400 DC 11/06 IV 11/06 1659 0850 Last 24 Hrs of Lab/Daryn Results Last 24 Hrs of Labs/Mics: Laboratory Tests 11/07/17 0820: Sodium Pending, Potassium Pending, Chloride Pending, Carbon Dioxide Pending, Anion Gap Pending, BUN Pending, Creatinine Pending, BUN/Creatinine Ratio Pending , CBC w Diff Pending, WBC Pending, RBC Pending, Hgb Pending, Hct Pending, MCV Pending, MCH Pending, RDW Pending, Plt Count Pending, MPV Pending, PUBS MCHC Pending 11/06/17 1125: Troponin I 0.02 11/06/17 1125: Anion Gap 9, Estimated GFR 53 L, BUN/Creatinine Ratio 21.0, Total Bilirubin 0.7 , Direct Bilirubin 0.2, AST 18, ALT 27, Alkaline Phosphatase 110, Total Protein 5.5 L, Albumin 3.4 L, CBC w Diff NO MAN DIFF REQ, RBC 3.84 L, MCV 89.8, MCH 29.6, RDW 17.0 H, MPV 9.1, Gran % 76.4 H, Lymphocytes % 14.7 L, Monocytes % 7.3, Eosinophils % 1.3, Basophils % 0.3, Absolute Granulocytes 4.9, Absolute Lymphocytes 0.9 L, Absolute Monocytes 0.5, Absolute Eosinophils 0.1, Absolute Basophils 0, PUBS MCHC 33.0 11/06/17 0900: PT Cancelled, INR Cancelled Assessment/Plan Assessment: Ms. Purcell is an 82-year-old female with past medical history of hypertension, hyperlipidemia, asthma, GERD, hypothyroidism, recurrent UTI, gout, morbid obesity, history of seizures presented to [place] [facility] from assisted living facility with complaints of nausea, vomiting and altered mental status for 1 day. Patient was confused on arrival and other review of system was unobtainable. 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 Nurse in charge of the patient care in SNF could not be reached. ER Course: hypoxic to 85% RA, Tmax 101.2, tachycardic to 90-100's, mild leukocytosis, elevated D-dimer. CTA could not be done due to inadequate IV access. CXR: Stable chest x-ray without acute cardiopulmonary findings. CT Chest/Ab: 1. Streaky areas of bandlike consolidation in the posterior lung bases bilaterally which are nonspecific but most suspicious for atelectasis. 2. Enlarging midline fat-containing periumbilical hernia without evidence of active inflammation. 3. Sigmoid diverticulosis without diverticulitis. 4. Ovoid pulmonary nodule at the lateral right lung base, unchanged from the most recent prior CT though perhaps slightly enlarged from 2013. This is most likely benign given relative stability over time. 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 Problem list & Hospital Course: #Hypoxia-rule out PE #Community-acquired pneumonia/aspiration pneumonia. #Chronic medical conditions including Hypertension Hyperlipidemia Hypothyroidism Asthma Assessment: Patient's fever, tachycardia, dropped O2 sat would lead to differential dx including PE, CAP/Aspirational Pneumonia. As CTA could not be done and we are pending V/Q scan, patient should be treated as CAP/AP. Patient also had N/V and RUQ pain despite no hepatic/gallbladder findings on CT ab. - O2, TRC/Neb as needed, Mucinex - Started Azithro + Ceftriaxone, will continue x 3 days and switch to oral ABx prior discharge. - CTA ruled out PE. Switched to Lovenox SC - Continued home meds including Lipitor, levothyroxine, iron - Would do U/S RUQ - Pain with Tylenol, roxicodone. - GI protected by Protonix IV DVT PPX Lovenox + ALPS Regular Diet Full Code Problem List: 1. Nausea & vomiting 2. Hypoxia Pain Ratin Pain Location: NA Pain Goal: Remain pain free Pain Plan: NA Tomorrow's Labs & Rationales: CBC/BEP Darling Sandoval 11/07/17 1100: Attending MD Review Statement Attending Statement Attending MD Statement: examined this patient, discuss w/resident/PA/MAT MAN, agreed w/resident/PA/MAT MAN, discussed with family, reviewed EMR data (avail), discussed with nursing, discussed with case mgmt, reviewed images, amended to note Attending Assessment/Plan: Patient seen/examined bedside. No overnight complaints. CTA negative for PE. She is requriing oxygen supplementation. Patient admitted to inpatient medical services Assessment and plan: 1. Altered mental status confused more than her baseline 2. Acute hypoxic respiratory failure 3. Possible sepsis 4. Community acquired pneumonia. 5. Dementia related encepahlopathy Plan is to continue with antibiotics iv ceftriaxone and azithromycin, Oxygen supplemetation, TRCs, LA 1.0, CTA negative for PE. Passed bedside test and resume diet, cont rest of home meds. cont supportive care.. gi/dvt prophylaxis anticipate dc planning back to facility in next 24-48 hrs and as oxygen requirement improves.
[2017-11-07 10:14] LABS: ABSOLUTE BASOPHIL COUNT 0 /CUMM (0.0-0.2); ABSOLUTE EOSINOPHIL COUNT 0.1 /CUMM (0.0-0.7); ABSOLUTE GRANULOCYTE CT 4.5 /CUMM (1.4-6.5); ABSOLUTE LYMPH COUNT 0.8 /CUMM (1.2-3.4); ABSOLUTE MONOCYTE COUNT 0.4 /CUMM (0.10-0.60); BASOPHIL % 0.4 % (0.0-2.0); EOSINOPHIL % 2.2 % (0-5); GRANULOCYTE % 76.2 % (42.2-75.2); HEMATOCRIT 34.9 % (37-47); MEAN CORPUSCULAR HGB 28.9 PG (27.0-31.0); MEAN CORPUSCULAR HGB CONC 32.2 G/DL (33.0-37.0); MEAN CORPUSCULAR VOLUME 89.7 FL (81.0-99.0); MEAN PLATELET VOLUME 9.3 FL (7.4-10.4); PLATELET COUNT 163 /CUMM (130-400); RBC DISTRIBUTION WIDTH 17.1 % (11.5-14.5); RED BLOOD CELL CT 3.89 /CUMM (4.20-5.40); WHITE BLOOD CELL COUNT 5.9 /CUMM (4.8-10.8)
--- NOTE | 2017-11-07 12:21 | Patient Discharge Instructions ---
Discharge Instructions General Discharge Information You were seen/treated for: Community-acquired pneumonia Hypertension Hyperlipidemia Hypothyroidism Asthma Special Instructions: - Please follow up with your primary care physician within 1-2 week of discharge. Inform your primary care physician of this admission to [facility]. - Continue your current medications per discharge instructions. - Please watch for these problems: Fever, Chills, Nausea, Vomiting, Shortness of Breath, Productive Cough, Chest Pain/Discomfort, Abdominal Pain, Active Bleeding or Bloody urine/stool. Diet Continue normal diet: Yes Activity Full Activity/No Limits: Yes Acute Coronary Syndrome Inclusion Criteria At DC or during hospital stay patient has or had the following: ACS DIAGNOSIS No Discharge Core Measures Meds if any: Prescribed or Continued at Discharge Meds if any: NOT Prescribed or Continued at Discharge Congestive Heart Failure Inclusion Criteria At DC or during hospital stay patient has or had the following: CHF DIAGNOSIS No Discharge Core Measures Meds if any: Prescribed or Continued at Discharge Meds if any: NOT Prescribed or Continued at Discharge Cerebrovascular accident Inclusion Criteria At DC or during hospital stay patient has or had the following: CVA/TIA Diagnosis No Discharge Core Measures Meds if any: Prescribed or Continued at Discharge Meds if any: NOT Prescribed or Continued at Discharge Venous thromboembolism Inclusion Criteria VTE Diagnosis No VTE Type NONE VTE Confirmed by (Test) NONE Discharge Core Measures - Per Current guidelines, there needs to be overlap - treatment for the first 5 days of Warfarin therapy. - If discharged on Warfarin prior to 5 days of - overlap therapy, the patient will need to be - assessed for post discharge needs including - *Post discharge parental anticoagulation - *Warfarin and/or parental anticoagulation education - *Follow up date to check INR post discharge At least 5 days overlap therapy as Inpatient No Meds if any: Prescribed or Continued at Discharge Note: Overlap Therapy is Warfarin and Anticoagulant Meds if any: NOT Prescribed or Continued at Discharge
--- NOTE | 2017-11-07 12:24 | Discharge Summary ---
Visit Information Visit Dates Admission Date: 11/06/17 Discharge Date: 11/12/2017 Hospital Course Course Attending Physician: Darling Sandoval MD Primary Care Physician: Salma ABREU,Wilman Romero Hospital Course: Ms. Purcell is an 82-year-old female with past medical history of hypertension, hyperlipidemia, asthma, GERD, hypothyroidism, recurrent UTI, gout, morbid obesity, history of seizures presented to [place] [facility] from assisted living facility with complaints of nausea, vomiting and altered mental status for 1 day. Patient was confused on arrival and other review of system was unobtainable. 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 Nurse in charge of the patient care in SNF could not be reached. ER Course: hypoxic to 85% RA, Tmax 101.2, tachycardic to 90-100's, mild leukocytosis, elevated D-dimer. CTA could not be done due to inadequate IV access. CXR: Stable chest x-ray without acute cardiopulmonary findings. CT Chest/Ab: 1. Streaky areas of bandlike consolidation in the posterior lung bases bilaterally which are nonsp ecific but most suspicious for atelectasis. 2. Enlarging midline fat-containing periumbilical hernia without evidence of active inflammation. 3. Sigmoid diverticulosis without diverticulitis. 4. Ovoid pulmonary nodule at the lateral right lung base, unchanged from the most recent prior CT though perhaps slightly enlarged from 2013. This is most likely benign given relative stability over time. 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 Patient was admitted to general medicine floor for the management of the following.: Problem list & Hospital Course: #Sepsis 2/2 community-acquired pneumonia Upon admission, patient underwent CTA and had been ruled out of PE. She meet SIRS critera on admission, Patient was started on Ceftriaxone + Azithromycin, Oxygen 2LNC, TRC/Nebulizer, and 5-day short course systemic steroids for respiratory relief/PMH of asthma. Patient was later switched to oral antibiotics , and completed a full 7-day course of ABx. Patient was off oxygen and antibiotic prior discharge. No blood/urine cx growth upon during hospital stay. Patient will be discharged to rehab and continue physical therapy there. #Altered mental status: She was confused more than her baseline, which most likely 2/2 the medical illness, her mental status return to the baseline upon discharge. #Nausea/vomiting Patient's N/V was likely due to underlying clinical conditions and also steroid use. Tigan was given as needed since patient had prolonged QT on EKG. Patient's Abdominal imaging had no acute GI conditions that may promote to N/V. Patient's symptoms subsidized prior discharge, and had 2 bowel movements with negative C.diff testing. #Chronic medical conditions including Hypertension, Hyperlipidemia, Hypothyroidism, Asthma Patient was continued home meds including Lipitor, levothyroxine, iron. Patient was advised to resume all home meds including lasix after discharge. DVT Prophylaxis Lovenox + ALPS Regular Diet Full Code Allergies: Coded Allergies: adhesive tape (Severe, HIVES- PER PT PAPER TAPE OK 09/12/17) erythromycin base (From Erythrocin) (Severe, NAUSEA, HIVES 09/17/16) Pertinent Lab Results: SERVICE DATE: 11/05/17-2031 EXAM TYPE: RAD - XRY-PORTABLE CHEST XRAY IMPRESSION: Stable chest x-ray without acute cardiopulmonary findings. SERVICE DATE: 11/05/17 EXAM TYPE: CAT - CT ABD & PELVIS W/O IV CONTRAS; CT CHEST WO IV CONTRAST IMPRESSION: 1. Streaky areas of bandlike consolidation in the posterior lung bases bilaterally which are nonspecific but most suspicious for atelectasis. 2. Enlarging midline fat-containing periumbilical hernia without evidence of active inflammation. 3. Sigmoid diverticulosis without diverticulitis. 4. Ovoid pulmonary nodule at the lateral right lung base, unchanged from the most recent prior CT though perhaps slightly enlarged from 2012. This is most likely benign given relative stability over time. 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 SERVICE DATE: 11/06/17- EXAM TYPE: US - US-LIMITED ABDOMEN IMPRESSION: Hepatic steatosis. Unremarkable appearance of the gallbladder. Study is limited by body habitus and bowel gas. SERVICE DATE: 11/06/17- EXAM TYPE: CAT - CTA CHEST IMPRESSION: No CT evidence for pulmonary embolism. Multifocal atelectasis. Bilateral nodular densities. Consider correlation with a follow-up chest CT following treatment and/or resolution of symptoms to assure resolution of this appearance. SERVICE DATE: 11/06/17 EXAM TYPE: US - US-EXT BILAT VENOUS DOPPLER IMPRESSION: Normal triplex scan without evidence of deep venous thrombosis involving the bilateral lower extremities. SERVICE DATE: 11/10/17 EXAM TYPE: RAD - RHF-PARQUMS-BMIODK VIEW IMPRESSION: Bowel gas pattern is unremarkable without evidence of obstruction. No evidence of significant stool retention. Laboratory Tests 11/11 0815 Chemistry Sodium (137 - 145 mmol/L) 139 Potassium (3.5 - 5.1 mmol/L) 4.3 Chloride (98 - 107 mmol/L) 103 Carbon Dioxide (22 - 30 mmol/L) 28 Anion Gap (5 - 16) 8 BUN (7 - 17 mg/dL) 23 H Creatinine (0.5 - 1.0 mg/dL) 0.8 Estimated GFR (>60 ml/min) > 60 BUN/Creatinine Ratio (7 - 25 %) 28.8 H Hematology CBC w Diff NO MAN DIFF REQ WBC (4.8 - 10.8 /CUMM) 8.8 RBC (4.20 - 5.40 /CUMM) 3.98 L Hgb (12.0 - 16.0 G/DL) 11.7 L Hct (37 - 47 %) 35.5 L MCV (81.0 - 99.0 FL) 89.2 MCH (27.0 - 31.0 PG) 29.3 RDW (11.5 - 14.5 %) 16.9 H Plt Count (130 - 400 /CUMM) 219 MPV (7.4 - 10.4 FL) 9.6 Gran % (42.2 - 75.2 %) 74.2 Lymphocytes % (20.5 - 51.1 %) 18.1 L Monocytes % (1.7 - 9.3 %) 7.1 Eosinophils % (0 - 5 %) 0.3 Basophils % (0.0 - 2.0 %) 0.3 Absolute Granulocytes (1.4 - 6.5 /CUMM) 6.5 Absolute Lymphocytes (1.2 - 3.4 /CUMM) 1.6 Absolute Monocytes (0.10 - 0.60 /CUMM) 0.6 Absolute Eosinophils (0.0 - 0.7 /CUMM) 0 Absolute Basophils (0.0 - 0.2 /CUMM) 0 PUBS MCHC (33.0 - 37.0 G/DL) 32.9 L Disposition Summary Disposition Principal Diagnosis: Community-acquired pneumonia Hypertension Hyperlipidemia Hypothyroidism Asthma Additional Diagnosis: as above Discharge Disposition: SNF Discharge Instructions General Discharge Information Code Status: Full Code Patient's Diet: Regular Patient's Activity: As tolerated Follow-Up Instructions/Appts: - Please follow up with your primary care physician within 1-2 week of discharge. Inform your primary care physician of this admission to [facility]. - Continue your current medications per discharge instructions. - Please watch for these problems: Fever, Chills, Nausea, Vomiting, Shortness of Breath, Productive Cough, Chest Pain/Discomfort, Abdominal Pain, Active Bleeding or Bloody urine/stool. Medications at Discharge Discharge Medications: Continue taking these medications: Omeprazole (Omeprazole) 20 MG CAPSULE.DR 1 Capsule ORAL TWICE DAILY Qty = 90 Comments: Last Taken: 11/12/17 Time: 0515 AM Lovastatin (Lovastatin) 20 MG TABLET 1 Tablet ORAL DAILY Comments: Last Taken:11/11/17 Time: 1700 PM Alprazolam (Alprazolam) 0.25 MG TABLET 1 Tablet ORAL TWICE DAILY Qty = 60 Comments: NOT TAKEN IN HOSPITAL Duloxetine HCl (Duloxetine HCl) 60 MG CAPSULE.DR 1 Capsule ORAL DAILY Qty = 90 Comments: NOT TAKEN IN HOSPITAL Amlodipine Besylate (Amlodipine Besylate) 5 MG TABLET 1 Tablet ORAL DAILY Qty = 90 Comments: Last Taken:09/17/17 Time:10:14AM Allopurinol (Allopurinol) 300 MG TABLET 1 Tablet ORAL DAILY Qty = 90 Comments: NOT TAKEN IN HOSPITAL Fluticasone Propionate (Fluticasone Propionate) 50 MCG/ACTUATION SPRAY.SUSP 1 [place] Both sides of nose DAILY Qty = 16 Comments: NOT TAKEN IN HOSPITAL Furosemide (Furosemide) 20 MG TABLET 1 Tablet ORAL Every other day Qty = 135 Comments: NOT TAKEN IN HOSPITAL Furosemide (Furosemide) 40 MG TABLET 1 Tablet ORAL Every other day Comments: Last Taken: 11/12/17 Time: 1050 AM Levothyroxine Sodium (Synthroid) 75 MCG TABLET 1 Tablet ORAL DAILY Qty = 90 Comments: Last Taken: 11/12/17 Time: 0515 AM Cholecalciferol (Vitamin D3) (Vitamin D) 1,000 UNIT TABLET 1 Tablet ORAL TWICE DAILY Comments: NOT TAKEN IN HOSPITAL Levocetirizine Dihydrochloride (Levocetirizine Dihydrochloride) 5 MG TABLET 1 Tablet ORAL Every night Comments: NOT TAKEN IN HOSPITAL Sennosides/Docusate Sodium (Senna S Tablet) 8.6 MG-50 MG TABLET 2 Tablet ORAL TAKE AT BEDTIME Comments: NOT TAKEN IN HOSPITAL. SUBSTITUTED. Gabapentin (Gabapentin) 300 MG CAPSULE 2 Capsule ORAL THREE TIMES DAILY Comments: NOT TAKEN IN HOSPITAL Guaifenesin (Rosalia-Tussin) (Unknown Strength) LIQUID Unknown Dose ORAL As Directed as needed for MUCUS\COUGH Comments: NOT TAKEN IN HOSPITAL Cyanocobalamin (Vitamin B-12) 1,000 MCG TABLET 1 Tablet ORAL DAILY Comments: NOT TAKEN IN HOSPITAL Acetaminophen (Arthritis Pain Relief) 650 MG TABLET.ER 1 Tablet ORAL as needed for PAIN Comments: NOT GIVEN IN HOSPITAL Ferrous Sulfate (Ferrous Sulfate) 325 MG (65 MG IRON) TABLET 1 Tablet ORAL 1900 Comments: Last Taken: 11/12/17 Time: 1050 AM Fluticasone Propionate (Flovent Hfa) 110 MCG/ACTUATION AER.W.ADAP 2 Puff Inhale through mouth TWICE DAILY Comments: NOT TAKEN IN HOSPITAL diphenhydrAMINE HCl (Benadryl) 25 MG CAPSULE 1 Capsule ORAL as needed for ITCHINESS Comments: Last Taken: 11/08/17 Time: 0045 AM Albuterol Sulfate (Proair Hfa) 90 MCG HFA.AER.AD 2 Puff Inhale through mouth Q4H as needed for WHEEZING Comments: NOT TAKEN IN HOSPITAL Guaifenesin (Mucinex) 600 MG TAB.ER.12H 1 Tablet ORAL TWICE DAILY Qty = 14 Comments: Last Taken: 11/12/17 Time: 1050 AM Calcium (Elemental-Fr Calcarb) (Calcium Carbonate) 600 MG CALCIUM (1,500 MG) TABLET 1 Tablet ORAL DAILY Comments: NOT TAKEN IN HOSPITAL Ipratropium/Albuterol Sulfate (Iprat-Albut 0.5-3(2.5) MG/3 Ml) 0.5 MG-3 MG (2.5 MG BASE)/3 ML AMPUL.NEB 1 Unit Dose Cup Inhale through mouth EVERY 4 HOURS NEEDED as needed for WHEEZING Comments: NOT TAKEN IN HOSPITAL Albuterol Sulfate (Proventil Hfa) 90 MCG HFA.AER.AD 2 Puff Inhale through mouth EVERY 4 HOURS NEEDED Qty = 20 Comments: NOT TAKEN IN HOSPITAL Psyllium Husk/Aspartame (Metamucil Powder) 3.4 GRAM/5.8 GRAM POWDER 5 [place]ilit[place] ORAL DAILY Comments: NOT TAKEN IN HOSPITAL Copies To: Salma ABREU,Wilman Romero Attending MD Review Statement Documenting Attending: Lori ABREU,Darling Other Findings: DSICHARGE DIAGNOSIS 1. Altered mental status confused more than her baseline 2. Acute hypoxic respiratory failure 3. Possible sepsis 4. Community acquired pneumonia. 5. Dementia related encepahlopathy 6. Severe gastritis 7. Constipation Completed PO augmentin x 5-7 days, Oxygen supplemetation, TRCs, Constipation on senna and miralax, abd xray negative for obstruction with relief in constipation. Walking pulse oximetry and PT eval suggested dc to [facility]. c/w diet, cont supportive care. gi/dvt prophylaxis. FOLLOW UP PCP in 5-7 days of discharge.
[2017-11-07 14:11] VITALS: BP 110/60
[2017-11-07 22:53] VITALS: BP 122/60
[2017-11-08 06:30] VITALS: BP 118/60
--- NOTE | 2017-11-08 07:55 | PN- Housestaff ---
Alejandrina Redmond 11/08/17 0750: Subjective Follow-up For: Hypoxia-rule out PE Community-acquired pneumonia/aspiration pnEumonia. Hypertension Hyperlipidemia Hypothyroidism Asthma Subjective: Patient was undergoing TRC/Neb treatment when I walked in. No specific complaint , except complaining a bit wheeze which she felt was new to her. Review of Systems Constitutional: Reports: see HPI. Objective Last 24 Hrs of Vital Signs/I&O Vital Signs Date Time Temp Pulse Resp B/P B/P Pulse O2 O2 Flow FiO2 Mean Ox Delivery Rate 11/08 0729 99 Nasal 3.0L Cannula 11/08 0630 98.1 90 18 118/60 95 Nasal Cannula 11/08 0000 Nasal 3.0L Cannula 11/07 2253 98.3 103 20 122/60 98 Nasal 3.0L Cannula 11/07 1411 98.0 70 20 110/60 98 Nasal 3.0L Cannula 11/07 1249 97 Nasal 3.0L Cannula 11/07 0800 Nasal 2.0L Cannula Intake & Output 11/08 0800 11/08 0000 11/07 1600 Intake Total 220 400 480 Output Total 250 400 Balance 220 150 80 Intake, IV 20 Intake, Oral 200 400 480 Number 0 Bowel Movements Output, Urine 250 400 Patient 111.357 kg 111.584 kg Weight Weight Bed scale Bed scale Measurement Method Physical Exam General Appearance: Alert, Oriented X3, Cooperative, No Acute Distress Cardiovascular: Regular Rate Lungs: Normal Air Movement, b/l mild wheeze, diminished breath sound bilaterally Extremities: No Edema, Normal Pulses Current Medications: Current Medications Sig/Esme Start time Last Medication Dose Route Stop Time Status Admin Acetaminophen 650 MG Q8P PRN 11/06 0400 AC PO Albuterol Sulfate 3 ML Q6PRN PRN 11/08 0730 AC 11/08 INH 0724 Atorvastatin Calcium 20 MG 1700 11/06 1700 AC 11/07 PO 1748 Azithromycin 250 MG DAILY 11/08 1000 AC PO 11/11 2100 Azithromycin 500 MG 0200 11/07 0200 DC 11/07 Sodium Chloride 250 ML IV 0146 Ceftriaxone Sodium 1,000 MG Q24H 11/07 0300 AC 11/08 IV 0322 Diphenhydramine HCl 25 MG ONCE ONE 11/08 0045 DC 11/08 PO 11/08 0046 0046 Enoxaparin Sodium 40 MG DAILY 11/07 1000 AC 11/07 SC 1030 Ferrous Sulfate 325 MG DAILY 11/07 1000 AC 11/07 PO 1030 Guaifenesin 600 MG BID 11/06 1000 AC 11/07 PO 2100 Levothyroxine Sodium 0.075 MG DAILY AC 11/06 0700 AC 11/08 PO 0554 Lidocaine 1 PAT Q24H 11/06 0700 AC 11/08 EXT 0553 Melatonin 3 MG AT BEDTIME 11/07 0215 AC 11/07 PO 2100 Methylprednisolone 40 MG ONCE ONE 11/08 0800 AC IV 11/08 0801 Oxycodone HCl 5 MG Q8P PRN 11/06 0500 AC PO Pantoprazole Sodium 40 MG DAILY 11/06 0530 AC 11/07 IV 1030 Patient Medication 1 ED ONE ONE 11/07 1230 DC Teaching ED 11/07 1231 Potassium Chloride 60 MEQ ONCE ONE 11/07 0945 DC 11/07 PO 11/07 0946 1029 Last 24 Hrs of Lab/Daryn Results Last 24 Hrs of Labs/Mics: Laboratory Tests 11/07/17 0820: Anion Gap 10, Estimated GFR > 60, BUN/Creatinine Ratio 17.8, CBC w Diff NO MAN DIFF REQ, RBC 3.89 L, MCV 89.7, MCH 28.9, RDW 17.1 H, MPV 9.3, Gran % 76.2 H, Lymphocytes % 14.2 L, Monocytes % 7.0, Eosinophils % 2.2, Basophils % 0.4, Absolute Granulocytes 4.5, Absolute Lymphocytes 0.8 L, Absolute Monocytes 0.4, Absolute Eosinophils 0.1, Absolute Basophils 0, PUBS MCHC 32.2 L Assessment/Plan Assessment: Ms. Purcell is an 82-year-old female with past medical history of hypertension, hyperlipidemia, asthma, GERD, hypothyroidism, recurrent UTI, gout, morbid obesity, history of seizures presented to [place] [facility] from assisted living facility with complaints of nausea, vomiting and altered mental status for 1 day. Patient was confused on arrival and other review of system was unobtainable. 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 Nurse in charge of the patient care in SNF could not be reached. ER Course: hypoxic to 85% RA, Tmax 101.2, tachycardic to 90-100's, mild leukocytosis, elevated D-dimer. CTA could not be done due to inadequate IV access. CXR: Stable chest x-ray without acute cardiopulmonary findings. CT Chest/Ab: 1. Streaky areas of bandlike consolidation in the posterior lung bases bilaterally which are nonspecific but most suspicious for atelectasis. 2. Enlarging midline fat-containing periumbilical hernia without evidence of active inflammation. 3. Sigmoid diverticulosis without diverticulitis. 4. Ovoid pulmonary nodule at the lateral right lung base, unchanged from the most recent prior CT though perhaps slightly enlarged from 2013. This is most likely benign given relative stability over time. 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 Problem list & Hospital Course: #Community-acquired pneumonia/aspiration pneumonia. #Chronic medical conditions including Hypertension Hyperlipidemia Hypothyroidism Asthma Assessment: Patient's fever, tachycardia, dropped O2 sat would lead to differential dx including PE, CAP/Aspirational Pneumonia. As CTA could not be done and we are pending V/Q scan, patient should be treated as CAP/AP. Patient also had N/V and RUQ pain despite no hepatic/gallbladder findings on CT ab. - O2, TRC/Neb as needed, Mucinex - Started Azithro + Ceftriaxone, will continue x 3 days and switch to oral ABx prior discharge. - CTA ruled out PE. Switched to Lovenox SC - Continued home meds including Lipitor, levothyroxine, iron - U/S RUQ showed unremarkable gallbladder. - Pain with Tylenol, roxicodone, as needed. - GI protected by Protonix IV DVT PPX Lovenox + ALPS Regular Diet Full Code Problem List: 1. Hypoxia 2. Cough Pain Ratin Pain Location: NA Pain Goal: Remain pain free Pain Plan: NA Tomorrow's Labs & Rationales: CBC/BEP LoriDarling 11/08/17 1112: Attending MD Review Statement Attending Statement Attending MD Statement: examined this patient, discuss w/resident/PA/SURGICAL AIDES TEACHER, agreed w/resident/PA/SURGICAL AIDES TEACHER, discussed with family, reviewed EMR data (avail), discussed with nursing, discussed with case mgmt, reviewed images, amended to note Attending Assessment/Plan: Patient seen/examined bedside. Patient c/o wheezing this am and received steorids. She is c/o vomiting this am, prn nausea meds. CTA negative for PE. She is requriing oxygen supplementation 2l. Patient admitted to inpatient medical services. Assessment and plan: 1. Altered mental status confused more than her baseline 2. Acute hypoxic respiratory failure 3. Possible sepsis 4. Community acquired pneumonia. 5. Dementia related encepahlopathy Plan is to change antibiotics iv ceftriaxone and azithromycin to PO augmentin, Oxygen supplemetation, TRCs, LA 1.0, CTA negative for PE. c/w diet, cont rest of home meds. cont supportive care. gi/dvt prophylaxis. anticipate dc planning back to facility in next 24-48 hrs and as oxygen requirement improves.
[2017-11-08 09:24] LABS: ABSOLUTE BASOPHIL COUNT 0 /CUMM (0.0-0.2); ABSOLUTE EOSINOPHIL COUNT 0.2 /CUMM (0.0-0.7); ABSOLUTE GRANULOCYTE CT 3.9 /CUMM (1.4-6.5); ABSOLUTE LYMPH COUNT 1.1 /CUMM (1.2-3.4); ABSOLUTE MONOCYTE COUNT 0.4 /CUMM (0.10-0.60); BASOPHIL % 0.4 % (0.0-2.0); EOSINOPHIL % 3.3 % (0-5); GRANULOCYTE % 69.9 % (42.2-75.2); HEMATOCRIT 33.8 % (37-47); MEAN CORPUSCULAR HGB 29.4 PG (27.0-31.0); MEAN CORPUSCULAR HGB CONC 32.8 G/DL (33.0-37.0); MEAN CORPUSCULAR VOLUME 89.7 FL (81.0-99.0); MEAN PLATELET VOLUME 9.3 FL (7.4-10.4); PLATELET COUNT 163 /CUMM (130-400); RBC DISTRIBUTION WIDTH 16.6 % (11.5-14.5); RED BLOOD CELL CT 3.77 /CUMM (4.20-5.40); WHITE BLOOD CELL COUNT 5.6 /CUMM (4.8-10.8)
--- NOTE | 2017-11-08 11:05 | ECHOCARDIOGRAM REPORT ---
[facility] Age: 82 : 1935 Gender: F Exam Date: 11/07/2017 14:19 Exam Location: [address] [place] [address] Ht (in): 62 Wt (lb): 250 BSA: 2.30 BP: 122 / 60 Ordering Physician: Shonda Andrews MD Referring Physician: Shonda Andrews MD Technologist: Ladonna Alicea [facility] Room Number: 221-01 Indications: ACUTE PULMONARY EMBOLISM Rhythm: Sinus Technical Quality: fair FINDINGS Left Ventricle Normal left ventricular size with mild left ventricular hypertrophy. Normal systolic function with no obvious regional wall motion abnormalities. Normal left ventricular diastolic filling pattern for age. The ejection fraction is visually estimated at 65%. Right Ventricle The right ventricle is normal in size and function. Right Atrium The right atrium is normal in size. Left Atrium The left atrium is normal in size. The interatrial septum is intact. Mitral Valve The mitral valve is normal in structure and function. There is no mitral regurgitation. Aortic Valve Mildly thickened and sclerotic aortic valve with mild stenosis. There is no aortic regurgitation. Tricuspid Valve The tricuspid valve is normal in structure and function. There is trace tricuspid regurgitation. Pulmonary artery systolic pressure is normal. Pulmonic Valve Structurally normal pulmonic valve. There is no pulmonic regurgitation. Pericardium Normal pericardium with trace effusion. No pleural effusion. Great Vessels Normal aortic root dimension. The aortic arch and great vessels are well seen and are normal. CONCLUSIONS 1. Normal EF of 65%. 2. Mild left ventricular hypertrophy. 3. Trace tricuspid regurgitation. 4. Trace pulmonic regurgitation. 5. Trace/physiologic pericardial effusion. Viraj Leonard M.D. (Electronically Signed) Final Date: 08 November 2017 11:05 MEASUREMENTS (Male / Female) Normal Values 2D ECHO LV Diastolic Diameter PLAX 4.4 cm 4.2 - 5.9 / 3.9 - 5.3 cm LV Systolic Diameter PLAX 2.8 cm 2.1 - 4.0 cm LV Fractional Shortening PLAX 36.4 % 25 - 46 % LV Ejection Fraction 2D Teich 66.3 % IVS Diastolic Thickness 1.3 cm LVPW Diastolic Thickness 1.3 cm LV Relative Wall Thickness 0.6 RV Internal Dim ED PLAX 3.1 cm 1.9 - 3.8 cm LVOT Diameter 2.2 cm Aortic Root Diameter 2.9 cm LA Systolic Diameter LX 3.8 cm 3.0 - 4.0 / 2.7 - 3.8 cm LA Volume 26.0 cm 18 - 58 / 22 - 52 cm Ascending Aorta Diameter 2.0 cm DOPPLER AV Peak Velocity 283.0 cm/s AV Peak Gradient 32.0 mmHg AV Mean Velocity 196.0 cm/s AV Mean Gradient 18.0 mmHg AV Velocity Time Integral 64.4 cm LVOT Peak Velocity 83.7 cm/s LVOT Peak Gradient 2.8 mmHg LVOT Mean Velocity 69.6 cm/s LVOT Mean Gradient 2.0 mmHg LVOT Velocity Time Integral 21.0 cm LVOT Stroke Volume 79.8 cm AV Area Cont Eq vti 1.2 cm AV Area Cont Eq pk 1.1 cm MV Peak Velocity 148.0 cm/s MV Peak Gradient 8.8 mmHg MV Mean Velocity 91.0 cm/s MV Mean Gradient 4.0 mmHg Mitral E Point Velocity 85.4 cm/s Mitral A Point Velocity 119.0 cm/s Mitral E to A Ratio 0.7 MV PHT Velocity 141.0 cm/s MV Deceleration Schley 490.0 cm/s MV Pressure Half Time 86.3 ms MV Area PHT 2.5 cm MV Deceleration Time 283.0 ms TR Peak Velocity 175.0 cm/s TR Peak Gradient 12.3 mmHg Right Atrial Pressure 5.0 mmHg Pulmonary Artery Systolic Pressu 17.3 mmHg Right Ventricular Systolic Press 17.3 mmHg PV Peak Velocity 141.0 cm/s PV Peak Gradient 8.0 mmHg PV Mean Velocity 102.0 cm/s PV Mean Gradient 5.0 mmHg PV Velocity Time Integral 33.8 cm LV E' Lateral Velocity 10.3 cm/s Mitral E to LV E' Lateral Ratio 8.3 LV E' Septal Velocity 7.7 cm/s Mitral E to LV E' Septal Ratio 11.1
[2017-11-08 15:36] VITALS: BP 120/60
[2017-11-08 22:01] VITALS: BP 130/60
[2017-11-09 06:30] VITALS: BP 140/80
--- NOTE | 2017-11-09 08:10 | PN- Housestaff ---
RuyAlejandrina 11/09/17 0809: Subjective Follow-up For: Community-acquired pneumonia. N/V Hypertension Hyperlipidemia Hypothyroidism Asthma Subjective: Patient was sleeping. Per nurse, patient vomited once around 4AM this morning, otherwise no specific complaints. Review of Systems Constitutional: Reports: see HPI. Objective Last 24 Hrs of Vital Signs/I&O Vital Signs Date Time Temp Pulse Resp B/P B/P Pulse O2 O2 Flow FiO2 Mean Ox Delivery Rate 11/09 0630 97.8 68 20 140/80 98 11/08 2201 98.7 65 18 130/60 95 Nasal 2.0L Cannula 11/08 1600 98 Nasal 2.0L Cannula 11/08 1536 98.0 68 20 120/60 96 Intake & Output 11/09 1600 11/09 0800 11/09 0000 Intake Total 400 Output Total 250 Balance 150 Intake, Oral 400 Output, Urine 250 Patient 111.13 kg Weight Weight Bed scale Measurement Method Physical Exam General Appearance: Patient was sleeping. Current Medications: Current Medications Sig/Esme Start time Last Medication Dose Route Stop Time Status Admin Acetaminophen 650 MG Q8P PRN 11/06 0400 AC PO Albuterol Sulfate 2 PUF Q4-6 PRN PRN 11/08 0845 AC INH Albuterol Sulfate 3 ML Q6PRN PRN 11/08 0730 DC 11/08 INH 0724 Atorvastatin Calcium 20 MG 1700 11/06 1700 AC 11/08 PO 1718 Azithromycin 250 MG DAILY 11/09 1000 AC Sodium Chloride 250 ML IV 11/11 1100 Azithromycin 250 MG DAILY 11/08 1000 DC 11/08 PO 11/11 2100 0921 Budesonide/ 2 PUF BID 11/08 1000 AC 11/08 Formoterol Fumarate INH 2131 Ceftriaxone Sodium 1,000 MG Q24H 11/07 0300 AC 11/09 IV 0321 Enoxaparin Sodium 40 MG DAILY 11/07 1000 AC 11/08 SC 0920 Ferrous Sulfate 325 MG DAILY 11/07 1000 AC 11/08 PO 0920 Guaifenesin 600 MG BID 11/06 1000 AC 11/08 PO 2131 Levothyroxine Sodium 0.075 MG DAILY AC 11/06 0700 AC 11/09 PO 0643 Lidocaine 1 PAT Q24H 11/06 0700 AC 11/08 EXT 0553 Melatonin 3 MG AT BEDTIME 11/07 0215 AC 11/08 PO 2131 Nystatin 1 YVAN TID 11/08 2242 AC TOP Ondansetron HCl 4 MG ONCE ONE 11/08 1000 CAN IV 11/08 1001 Oxycodone HCl 5 MG Q8P PRN 11/06 0500 AC PO Pantoprazole Sodium 40 MG ONCE ONE 11/08 1000 CAN IV 11/08 1001 Pantoprazole Sodium 40 MG DAILY 11/06 0530 AC 11/08 IV 0914 Prednisone 40 MG DAILY 11/09 1000 AC PO 11/12 1100 Trimethobenzamide HCl 200 MG 4 TIMES/DAY PRN 11/08 1015 AC 11/09 IM 0140 Assessment/Plan Assessment: Ms. Purcell is an 82-year-old female with past medical history of hypertension, hyperlipidemia, asthma, GERD, hypothyroidism, recurrent UTI, gout, morbid obesity, history of seizures presented to [facility] from assisted living facility with complaints of nausea, vomiting and altered mental status for 1 day. Patient was confused on arrival and other review of system was unobtainable. 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 Nurse in charge of the patient care in SNF could not be reached. ER Course: hypoxic to 85% RA, Tmax 101.2, tachycardic to 90-100's, mild leukocytosis, elevated D-dimer. CTA could not be done due to inadequate IV access. CXR: Stable chest x-ray without acute cardiopulmonary findings. CT Chest/Ab: 1. Streaky areas of bandlike consolidation in the posterior lung bases bilaterally which are nonspecific but most suspicious for atelectasis. 2. Enlarging midline fat-containing periumbilical hernia without evidence of active inflammation. 3. Sigmoid diverticulosis without diverticulitis. 4. Ovoid pulmonary nodule at the lateral right lung base, unchanged from the most recent prior CT though perhaps slightly enlarged from 2013. This is most likely benign given relative stability over time. 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 Problem list & Hospital Course: #Community-acquired pneumonia/aspiration pneumonia. #Chronic medical conditions including Hypertension Hyperlipidemia Hypothyroidism Asthma Assessment: Patient's fever, tachycardia, dropped O2 sat would lead to differential dx including PE, CAP/Aspirational Pneumonia. As CTA could not be done and we are pending V/Q scan, patient should be treated as CAP/AP. Patient also had N/V and RUQ pain despite no hepatic/gallbladder findings on CT ab. - O2, TRC/Neb as needed, Mucinex - DC IV meds/ABx, switch to Zithromax + Augmentin x 2 days, pending discharge one stable. - Tigan 200mg PRN for N/V. Patient's N/V was likely due to steoird use. Patient was placed on protonix for GI protection. - CTA ruled out PE. Switched to Lovenox SC - Continued home meds including Lipitor, levothyroxine, iron - U/S RUQ showed unremarkable gallbladder. - Pain with Tylenol, roxicodone, as needed. - GI protected by Protonix IV DVT PPX Lovenox + ALPS Regular Diet Full Code Problem List: 1. GERD (gastroesophageal reflux disease) 2. Hypoxia 3. Nausea & vomiting 4. Pneumonia Pain Ratin Pain Location: NA Pain Goal: Remain pain free Pain Plan: See AP Tomorrow's Labs & Rationales: CBC/BEP Darling Sandoval 11/09/17 1152: Attending MD Review Statement Attending Statement Attending MD Statement: examined this patient, discuss w/resident/PA/CLINICAL RESEARCH DIRECTOR, agreed w/resident/PA/CLINICAL RESEARCH DIRECTOR, discussed with family, reviewed EMR data (avail), discussed with nursing, discussed with case mgmt, reviewed images, amended to note Attending Assessment/Plan: Patient seen/examined bedside. Her nausea improves with antiemetics. CTA negative for PE. She is requriing oxygen supplementation 2l. Patient admitted to inpatient medical services. Assessment and plan: 1. Altered mental status confused more than her baseline 2. Acute hypoxic respiratory failure 3. Possible sepsis 4. Community acquired pneumonia. 5. Dementia related encepahlopathy 6. Severe gastritis. Complete PO augmentin x 5-7 days, Oxygen supplemetation, TRCs, c/w diet, cont rest of home meds. cont supportive care. gi/dvt prophylaxis. Walking pulse oximetry and PT eval suggested dc to assisted care facility with home PT. anticipate dc planning as oxygen requirement improves.
[2017-11-09] MEDS ORDERED: PREDNISONE20 M1 PO (12:29)
[2017-11-09 15:06] VITALS: BP 140/70
[2017-11-09 22:16] VITALS: BP 136/60
[2017-11-10 06:24] VITALS: BP 128/72
--- NOTE | 2017-11-10 10:28 | PN- Housestaff ---
Osito ABREU,[facility] 11/10/17 1028: Subjective Follow-up For: Community-acquired pneumonia. N/V Hypertension Hyperlipidemia Hypothyroidism Asthma Subjective: No acute events overnight. No complaints today. Review of Systems Constitutional: Reports: no symptoms. Cardiovascular: Reports: no symptoms. Respiratory: Reports: no symptoms. Gastrointestinal: Reports: no symptoms. Genitourinary: Reports: no symptoms. Musculoskeletal: Reports: no symptoms. Objective Last 24 Hrs of Vital Signs/I&O Vital Signs Date Time Temp Pulse Resp B/P B/P Pulse O2 O2 Flow FiO2 Mean Ox Delivery Rate 11/10 1343 97.6 76 18 120/60 96 Nasal 2.0L Cannula 11/10 0800 Nasal 2.0L Cannula 11/10 0624 97.8 71 20 128/72 97 Nasal 2.0L Cannula 11/10 0000 97 Nasal 2.0L Cannula 11/09 2216 98.3 63 20 136/60 97 11/09 1600 94 Nasal 2.0L Cannula 11/09 1506 98.0 67 18 140/70 96 Intake & Output 11/10 1600 11/10 0800 11/10 0000 Intake Total 250 730 Output Total 200 300 Balance -200 250 430 Intake, IV 10 10 Intake, Oral 240 720 Output, Urine 200 300 Physical Exam General Appearance: Alert, Cooperative, No Acute Distress Skin Temp/Moisture Exam: Warm/Dry Cardiovascular: Regular Rate, systolic murmur Lungs: SAILAJA crackcles, Abdomen: RLQ tenderness Extremities: 1+ radial pulses Current Medications: Current Medications Sig/Esme Start time Last Medication Dose Route Stop Time Status Admin Acetaminophen 650 MG Q8P PRN 11/06 0400 AC PO Albuterol Sulfate 2 PUF Q4-6 PRN PRN 11/08 0845 AC INH Amoxicillin/ 500 MG Q8 11/09 1400 AC 11/10 Clavulanate Potassium PO 11/11 2300 1401 Atorvastatin Calcium 20 MG 1700 11/06 1700 AC 11/09 PO 1623 Azithromycin 250 MG DAILY 11/10 1000 DC 11/10 PO 11/11 1100 0853 Azithromycin 250 MG DAILY 11/09 1000 DC 11/09 Sodium Chloride 250 ML IV 11/11 1100 0958 Budesonide/ 2 PUF BID 11/08 1000 AC 11/10 Formoterol Fumarate INH 0852 Enoxaparin Sodium 40 MG DAILY 11/07 1000 AC 11/10 SC 0851 Ferrous Sulfate 325 MG DAILY 11/07 1000 AC 11/10 PO 0851 Guaifenesin 600 MG BID 11/06 1000 AC 11/10 PO 0851 Levothyroxine Sodium 0.075 MG DAILY AC 11/06 0700 AC 11/10 PO 0543 Lidocaine 1 PAT Q24H 11/06 0700 AC 11/10 EXT 0543 Melatonin 3 MG AT BEDTIME 11/07 0215 AC 11/09 PO 2056 Nystatin 1 YVAN TID 11/08 2242 AC 11/10 TOP 0851 Omeprazole 40 MG DAILY AC 11/10 0700 AC 11/10 PO 0543 Oxycodone HCl 5 MG Q8P PRN 11/06 0500 AC PO Polyethylene Glycol 17 GM DAILY 11/10 1030 AC 11/10 PO 1058 Prednisone 40 MG DAILY 11/09 1000 DC 11/10 PO 11/12 1100 0852 Trimethobenzamide HCl 200 MG 4 TIMES/DAY PRN 11/08 1015 AC 11/09 IM 0953 Assessment/Plan Assessment: Ms. Purcell is an 82-year-old female with past medical history of hypertension, hyperlipidemia, asthma, GERD, hypothyroidism, recurrent UTI, gout, morbid obesity, history of seizures presented to [facility] from assisted living facility with complaints of nausea, vomiting and altered mental status for 1 day. Patient was confused on arrival and other review of system was unobtainable. 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 Nurse in charge of the patient care in SNF could not be reached. Problem list & Hospital Course: #Community-acquired pneumonia/aspiration pneumonia. #N/V #Chronic medical conditions including Hypertension Hyperlipidemia Hypothyroidism Asthma CT Chest/Ab: 1. Streaky areas of bandlike consolidation in the posterior lung bases bilaterally which are nonspecific but most suspicious for atelectasis. 2. Enlarging midline fat-containing periumbilical hernia without evidence of active inflammation. 3. Sigmoid diverticulosis without diverticulitis. 4. Ovoid pulmonary nodule at the lateral right lung base, unchanged from the most recent prior CT though perhaps slightly enlarged from 2013. This is most likely benign given relative stability over time. 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 KUB: Bowel gas pattern is unremarkable without evidence of obstruction. No evidence of significant stool retention. Assessment: Patient's fever, tachycardia, dropped O2 sat would lead to differential dx including PE, CAP/Aspirational Pneumonia. As CTA could not be done and we are pending V/Q scan, patient should be treated as CAP/AP. Patient also had N/V and RUQ pain despite no hepatic/gallbladder findings on CT ab. -continue miralax and senna for constipation - O2, TRC/Neb as needed, Mucinex -Discontinue azithromycin, complete last prednisone dose today. -Trending pulse ox for discharge - Tigan 200mg PRN for N/V. Patient's N/V was likely due to steoird use. Patient was placed on protonix for GI protection. - CTA ruled out PE. Switched to Lovenox SC - Continued home meds including Lipitor, levothyroxine, iron - U/S RUQ showed unremarkable gallbladder. - Pain with Tylenol, roxicodone, as needed. DVT PPX Lovenox + ALPS Regular Diet Full Code Problem List: 1. Pneumonia Pain Ratin Pain Location: none Pain Goal: Pain 4 or less Pain Plan: pathway Tomorrow's Labs & Rationales: cbc bep Darling Sandoval 11/10/17 1452: Attending MD Review Statement Attending Statement Attending MD Statement: examined this patient, discuss w/resident/PA/MOTORBOAT MECHANIC INBOARD, agreed w/resident/PA/MOTORBOAT MECHANIC INBOARD, discussed with family, reviewed EMR data (avail), discussed with nursing, discussed with case mgmt, reviewed images, amended to note Attending Assessment/Plan: Patient seen/examined bedside. Her nausea improves with antiemetics. CTA negative for PE. She is requriing oxygen supplementation 2l. Patient admitted to inpatient medical services. C/o constipation, no bowel movements for past few days. Mild abdomen distension+ Assessment and plan: 1. Altered mental status confused more than her baseline 2. Acute hypoxic respiratory failure 3. Possible sepsis 4. Community acquired pneumonia. 5. Dementia related encepahlopathy 6. Severe gastritis 7. Constipation Complete PO augmentin x 5-7 days, Oxygen supplemetation, TRCs, c/w diet, cont rest of home meds. cont supportive care. gi/dvt prophylaxis. Constipation start miralax , obtain abd xray r/o obstruction and monitor bowel movement. Walking pulse oximetry and PT eval suggested dc to assisted care facility with home PT. anticipate dc planning as oxygen requirement improves.
--- NOTE | 2017-11-10 12:33 | RADIOLOGY REPORT ---
EXAMINATION: XR ABDOMEN CLINICAL INDICATION: Abdominal pain and distention, constipation COMPARISON: CT chest, abdomen, and pelvis from 11/05/2017 TECHNIQUE: AP view of the abdomen. FINDINGS: There is no disproportionate gaseous dilation. Distal bowel gas is present with gas and stool visualized in the rectum. No evidence of significant stool retention. Streaky atelectasis in the left lung base. Severe degenerative changes of the right hip. Multilevel degenerative changes of the spine. IMPRESSION: Bowel gas pattern is unremarkable without evidence of obstruction. No evidence of significant stool retention.
[2017-11-10 13:43] VITALS: BP 120/60
[2017-11-10 22:12] VITALS: BP 112/60
[2017-11-11 06:25] VITALS: BP 100/62
[2017-11-11 09:29] LABS: ABSOLUTE BASOPHIL COUNT 0 /CUMM (0.0-0.2); ABSOLUTE EOSINOPHIL COUNT 0 /CUMM (0.0-0.7); ABSOLUTE GRANULOCYTE CT 6.5 /CUMM (1.4-6.5); ABSOLUTE LYMPH COUNT 1.6 /CUMM (1.2-3.4); ABSOLUTE MONOCYTE COUNT 0.6 /CUMM (0.10-0.60); BASOPHIL % 0.3 % (0.0-2.0); EOSINOPHIL % 0.3 % (0-5); GRANULOCYTE % 74.2 % (42.2-75.2); HEMATOCRIT 35.5 % (37-47); MEAN CORPUSCULAR HGB 29.3 PG (27.0-31.0); MEAN CORPUSCULAR HGB CONC 32.9 G/DL (33.0-37.0); MEAN CORPUSCULAR VOLUME 89.2 FL (81.0-99.0); MEAN PLATELET VOLUME 9.6 FL (7.4-10.4); PLATELET COUNT 219 /CUMM (130-400); RBC DISTRIBUTION WIDTH 16.9 % (11.5-14.5); RED BLOOD CELL CT 3.98 /CUMM (4.20-5.40)
[2017-11-11 10:16] LABS: WHITE BLOOD CELL COUNT 8.8 /CUMM (4.8-10.8)
--- NOTE | 2017-11-11 11:46 | PN- Att Addend ---
Attending Addendum Attending Brief Note Patient seen/examined bedside. Her nausea improves with antiemetics. CTA negative for PE. She is requriing oxygen supplementation 2l. Patient admitted to inpatient medical services. C/o constipation, no bowel movements for past few days. Mild abdomen distension+ Assessment and plan: 1. Altered mental status confused more than her baseline 2. Acute hypoxic respiratory failure 3. Possible sepsis 4. Community acquired pneumonia. 5. Dementia related encepahlopathy 6. Severe gastritis 7. Constipation Complete PO augmentin x 5-7 days, Oxygen supplemetation, TRCs, c/w diet, cont rest of home meds. cont supportive care. gi/dvt prophylaxis. Constipation on senna and miralax , Add magnesium citrate. obtain abd xray negative for obstruction and monitor bowel movement. Walking pulse oximetry and PT eval suggested dc to assisted care facility with home PT. anticipate dc planning as oxygen requirement improves.
[2017-11-11 13:53] VITALS: BP 130/80
[2017-11-11 22:08] VITALS: BP 110/70
[2017-11-12 06:11] VITALS: BP 112/68
--- NOTE | 2017-11-12 07:35 | PN- Housestaff ---
See Addendum Subjective Follow-up For: Community-acquired pneumonia. N/V Hypertension Hyperlipidemia Hypothyroidism Asthma Subjective: No overnight event. patient appeared a bit of frustrated about not being able to be discharged home. Patient was still under 2LNC. Review of Systems Constitutional: Reports: see HPI. Objective Last 24 Hrs of Vital Signs/I&O Vital Signs Date Time Temp Pulse Resp B/P B/P Pulse O2 O2 Flow FiO2 Mean Ox Delivery Rate 11/12 06 97.8 64 18 112/68 97 Nasal Cannula 11/12 0000 Nasal 2.0L Cannula 11/11 2208 98.0 60 20 110/70 96 11/11 1353 98.3 66 18 130/80 96 Nasal 2.0L Cannula Intake & Output 11/12 1600 11/12 0811/12 0000 Intake Total 120 240 Output Total 2 Balance 120 238 Intake, Oral 120 240 Number 1 Bowel Movements Output, Stool 2 Patient 158.927 kg Weight Weight Bed scale Measurement Method Physical Exam General Appearance: Alert, Oriented X3, Cooperative, No Acute Distress Cardiovascular: Regular Rate Lungs: Normal Air Movement, some rhonchi, no crackles Abdomen: Soft, No Tenderness, gasy feeling per patient Neurological: Normal Speech Extremities: No Edema Current Medications: Current Medications Sig/Esme Start time Last Medication Dose Route Stop Time Status Admin Acetaminophen 650 MG Q8P PRN 11/06 0400 AC PO Albuterol Sulfate 2 PUF Q4-6 PRN PRN 11/08 0845 AC INH Amoxicillin/ 500 MG Q8 11/09 1400 DC 11/11 Clavulanate Potassium PO 11/11 2300 2119 Atorvastatin Calcium 20 MG 1700 11/06 1700 AC 11/11 PO 1727 Budesonide/ 2 PUF BID 11/08 1000 AC 11/11 Formoterol Fumarate INH 2120 Enoxaparin Sodium 40 MG DAILY 11/07 1000 AC 11/11 SC 1000 Ferrous Sulfate 325 MG DAILY 11/07 1000 AC 11/11 PO 0959 Guaifenesin 600 MG BID 11/06 1000 AC 11/11 PO 2119 Levothyroxine Sodium 0.075 MG DAILY AC 11/06 0700 AC 11/12 PO 0517 Lidocaine 1 PAT Q24H 11/06 07 AC 11/12 EXT 0517 Magnesium Citrate 300 ML ONE TIME ONE 11/11 1200 DC 11/11 PO 11/11 1201 1447 Melatonin 3 MG AT BEDTIME 11/07 0215 AC 11/11 PO 2120 Nystatin 1 YVAN TID 11/08 2242 AC 11/11 TOP 2121 Omeprazole 40 MG DAILY AC 11/10 0700 AC 11/12 PO 0517 Oxycodone HCl 5 MG Q8P PRN 11/06 0500 AC PO Polyethylene Glycol 17 GM DAILY 11/10 1030 AC 11/11 PO 0959 Senna 187 MG AT BEDTIME 11/10 2200 AC 11/11 PO 2120 Trimethobenzamide HCl 200 MG 4 TIMES/DAY PRN 11/08 1015 AC 11/10 IM 2122 Assessment/Plan Assessment: Ms. Purcell is an 82-year-old female with past medical history of hypertension, hyperlipidemia, asthma, GERD, hypothyroidism, recurrent UTI, gout, morbid obesity, history of seizures presented to [facility] from assisted living facility with complaints of nausea, vomiting and altered mental status for 1 day. Patient was confused on arrival and other review of system was unobtainable. 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 Nurse in charge of the patient care in SNF could not be reached. Problem list & Hospital Course: #Community-acquired pneumonia/aspiration pneumonia. #N/V #Chronic medical conditions including Hypertension Hyperlipidemia Hypothyroidism Asthma CT Chest/Ab: 1. Streaky areas of bandlike consolidation in the posterior lung bases bilaterally which are nonspecific but most suspicious for atelectasis. 2. Enlarging midline fat-containing periumbilical hernia without evidence of active inflammation. 3. Sigmoid diverticulosis without diverticulitis. 4. Ovoid pulmonary nodule at the lateral right lung base, unchanged from the most recent prior CT though perhaps slightly enlarged from 2013. This is most likely benign given relative stability over time. 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 KUB: Bowel gas pattern is unremarkable without evidence of obstruction. No evidence of significant stool retention. Assessment: Patient's fever, tachycardia, dropped O2 sat would lead to differential dx including PE, CAP/Aspirational Pneumonia. As CTA could not be done and we are pending V/Q scan, patient should be treated as CAP/AP. Patient also had N/V and RUQ pain despite no hepatic/gallbladder findings on CT ab. -continue miralax and senna for constipation - O2, TRC/Neb as needed, Mucinex -Discontinue azithromycin/augmentin as patient had completed the course of ABx now, Patient had completed last prednisone dose. -Trending pulse ox for discharge - Tigan 200mg PRN for N/V. Patient's N/V was likely due to steoird use. Patient was placed on protonix for GI protection. - CTA ruled out PE. Switched to Lovenox SC - Continued home meds including Lipitor, levothyroxine, iron - U/S RUQ showed unremarkable gallbladder. - Pain with Tylenol, roxicodone, as needed. DVT PPX Lovenox + ALPS Regular Diet Full Code Problem List: 1. Pneumonia 2. Nausea & vomiting Pain Ratin Pain Location: NA Pain Goal: Remain pain free Pain Plan: see AP Tomorrow's Labs & Rationales: CBC/BEP
--- NOTE | 2017-11-12 13:31 | PN- Student ---
Subjective Subjective: Ms. Purcell stated that she was doing better, slept well throughout the night, and did not experience any further N/V, or shortnes of breath. Patient had two bowel movements, releiving prior constipation and stated that she is now experiencing gas but was not in any physical pain. When asked if she had any other questions or concerns, patient stated she did not know and appeared slightly confused and unhappy about still being in the hospital. Objective Objective: Vital Signs Date Time Temp Pulse Resp B/P B/P Pulse O2 O2 Flow FiO2 Mean Ox Delivery Rate 11/12 1446 98.0 74 20 132/64 96 Room Air 11/12 0919 Nasal 2.0L Cannula 11/12 799 98 Nasal 2.0L Cannula 11/12 0611 97.8 64 18 112/68 97 Nasal Cannula 11/12 0000 Nasal 2.0L Cannula 11/11 2208 98.0 60 20 110/70 96 Intake & Output 11/12 1600 11/12 0800 11/12 0000 Intake Total 120 240 Output Total 200 2 Balance -200 120 238 Intake, Oral 120 240 Number 1 1 Bowel Movements Output, Stool 2 Output, Urine 200 Patient 350 lb Weight Weight Bed scale Measurement Method P/E: Patient appears mildly aggitated but in no acute distress, she is cooperative and is alert & oriented to time person and place. Physical examination of the chest reveals normal s1 & s2 with regular rate, rhythm, & no pallpible or auditory thrills or murmurs. Auscultation of the lungs reveal mild rhonchi and no crackles. Palpation of abdomen elicited a pain response d/t tenderness in the RUQ, possibly d/t hemmatoma from prior heparin injection. Upper and lower extremeties appear normal, with no evident redness or edema. Patients speech is intact but responses are slightly delayed, possibly due to confusion. Current Medications Sig/Esme Start time Last Medication Dose Route Stop Time Status Admin Acetaminophen 650 MG Q8P PRN 11/06 0400 AC PO Albuterol Sulfate 2 PUF Q4-6 PRN PRN 11/08 0845 AC INH Amoxicillin/ 500 MG Q8 11/09 1400 DC 11/11 Clavulanate Potassium PO 11/11 2300 2119 Atorvastatin Calcium 20 MG 1700 11/06 1700 AC 11/11 PO 1727 Budesonide/ 2 PUF BID 11/08 1000 AC 11/12 Formoterol Fumarate INH 1053 Enoxaparin Sodium 40 MG DAILY 11/07 1000 AC 11/12 SC 1052 Ferrous Sulfate 325 MG DAILY 11/07 1000 AC 11/12 PO 1052 Furosemide 40 MG ONE ONE 11/12 0945 DC 11/12 PO 11/12 0946 1123 Guaifenesin 600 MG BID 11/06 1000 AC 11/12 PO 1053 Levothyroxine Sodium 0.075 MG DAILY AC 11/06 0700 AC 11/12 PO 0517 Lidocaine 1 PAT Q24H 11/06 0700 AC 11/12 EXT 0517 Melatonin 3 MG AT BEDTIME 11/07 0215 AC 11/11 PO 2120 Nystatin 1 YVAN TID 11/08 2242 AC 11/12 TOP 1053 Omeprazole 40 MG DAILY AC 11/10 0700 AC 11/12 PO 0517 Oxycodone HCl 5 MG Q8P PRN 11/06 0500 AC PO Polyethylene Glycol 17 GM DAILY 11/10 1030 AC 11/11 PO 0959 Senna 187 MG AT BEDTIME 11/10 2200 AC 11/11 PO 2120 Trimethobenzamide HCl 200 MG 4 TIMES/DAY PRN 11/08 1015 AC 11/10 IM 2122 Results Results: Laboratory Tests 11/11/17 0815: Anion Gap 8, Estimated GFR > 60, BUN/Creatinine Ratio 28.8 H, CBC w Diff NO MAN DIFF REQ, RBC 3.98 L, MCV 89.2, MCH 29.3, RDW 16.9 H, MPV 9.6, Gran % 74.2, Lymphocytes % 18.1 L, Monocytes % 7.1, Eosinophils % 0.3, Basophils % 0.3, Absolute Granulocytes 6.5, Absolute Lymphocytes 1.6, Absolute Monocytes 0.6, Absolute Eosinophils 0, Absolute Basophils 0, PUBS MCHC 32.9 L Exam & Diagnostic Data Last 24 Hrs of Vital Signs/I&O Vital Signs Date Time Temp Pulse Resp B/P B/P Pulse O2 O2 Flow FiO2 Mean Ox Delivery Rate 11/12 1556 98.0 74 20 132/64 11/12 1446 98.0 74 20 132/64 96 Room Air 11/12 0919 Nasal 2.0L Cannula 11/12 799 98 Nasal 2.0L Cannula 11/12 06 97.8 64 18 112/68 97 Nasal Cannula 11/12 0000 Nasal 2.0L Cannula 11/11 2208 98.0 60 20 110/70 96 Intake & Output 11/12 1600 11/12 0800 11/12 0000 Intake Total 1005 120 240 Output Total 600 2 Balance 405 120 238 Intake, IV 5 Intake, Oral 1000 120 240 Number 3 1 Bowel Movements Output, Stool 2 Output, Urine 600 Patient 350 lb Weight Weight Bed scale Measurement Method Assessment/Plan Assessment: 82 y/o Female, Ms. Purcell, w/ PMHx of HTN, hyperlipidemia, asthma, GERD, hypothyroidism, recurrent UTI, gout, morbid obesity, & Hx of seizures, presented to [facility] with CC of N/V & altered mental status for one day. Patient was subsequently admitted to gen. med. & placed on supplemental oxygen. She underwent CT Imaging of her Chest/Ab, & PE was ruled out. Pt received treatment for community acquired pneumonia & episodes of N/V. She is currently on day 6 of hospitalization. - Patient is cooperative and is alert & oriented to time person and place, which is patient's baseline. Patient's ongoing presentation of mild confusion has improved/decreased from the initial assessment, but is constant over the last two days. - Physical examination of the chest reveals normal heart sounds with regular rate, rhythm, & no pallpible or auditory thrills or murmurs, as per patients baseline. - Auscultation of the lungs reveal mild rhonchi and no crackles, these findings are generally improved compared to patient's lung auscultation from yesterday. - Palpation of abdomen elicited a pain response d/t tenderness in the LUQ, possibly d/t hematoma from prior heparin injection at the site, there is visible skin discoloration and well a defined localized tenderness upon assessment. - Patient had two bowel movements after administration of magnesium citrate, effectively alleviating constipation. - Patient stated that she no longer feels any N/V, and previous imaging results do not show any obstructive pattern, despite patient still c/o some gasy feelings upon palpation. Since patient has been bedbound without adequate ambulation, patient's GI symptoms are likely due to lack of motility rather than underlying acute process. - Patients speech is intact and although responses are slightly delayed, d/t possible confusion, the response time has improved from initial assessment. Plan: - Discontinue Supplemental Oxygen, Pt's PulseOx was measured to be 97% upon removal of nasal canula. - Patient completed full course of antibiotics for community acquired pneumonia, continue monitoring. - Continue Senna & Miralax to aleviate/aid in prevention of further constipation. - Pending PT evaluation for discharge recommendations & to help alleviate gas. - Continue patient on home medication to treat pre-existing conditions including : Asthma, hyperlipidemia, Hypothyroidism, HTN, etc. OXYGEN 11/09 UNK Complete OXYGEN DAILY CHARGE 11/09 UNK Complete Therapeutic Activities 11/09 UNK Complete Therapeutic Exercise 11/09 UNK Complete Results Results: Laboratory Tests 11/11/17 0815: Anion Gap 8, Estimated GFR > 60, BUN/Creatinine Ratio 28.8 H, CBC w Diff NO MAN DIFF REQ, RBC 3.98 L, MCV 89.2, MCH 29.3, RDW 16.9 H, MPV 9.6, Gran % 74.2, Lymphocytes % 18.1 L, Monocytes % 7.1, Eosinophils % 0.3, Basophils % 0.3, Absolute Granulocytes 6.5, Absolute Lymphocytes 1.6, Absolute Monocytes 0.6, Absolute Eosinophils 0, Absolute Basophils 0, PUBS MCHC 32.9 L Exam & Diagnostic Data Last 24 Hrs of Vital Signs/I&O Vital Signs Date Time Temp Pulse Resp B/P B/P Pulse O2 O2 Flow FiO2 Mean Ox Delivery Rate 11/12 0919 Nasal 2.0L Cannula 11/12 799 98 Nasal 2.0L Cannula 11/12 0611 97.8 64 18 112/68 97 Nasal Cannula 11/12 0000 Nasal 2.0L Cannula 11/11 2208 98.0 60 20 110/70 96 11/11 1353 98.3 66 18 130/80 96 Nasal 2.0L Cannula Intake & Output 11/12 1600 11/12 0811/12 0000 Intake Total 120 240 Output Total 200 2 Balance -200 120 238 Intake, Oral 120 240 Number 1 1 Bowel Movements Output, Stool 2 Output, Urine 200 Patient 350 lb Weight Weight Bed scale Measurement Method
[2017-11-12 14:46] VITALS: BP 132/64
[2017-11-12 15:56] VITALS: BP 132/64
== END 2017-11-12 16:20 | DRG 871 ==
LOC: ERH 19:48 → ERHI 11-06 02:09 → 2NA 11-06 02:09 → ENRESERV 11-06 02:59 → 2NA 11-06 04:14 → ENPENDDIS 11-12 13:40 → 2NA 11-12 16:20
PROVIDERS: Internal Medicine Endocrinology, Diabetes & Metabolism; Physician Assistant
DX: A41.9 Sepsis, unspecified organism (principal); J18.9 Pneumonia, unspecified organism; J96.01 Acute respiratory failure with hypoxia; G93.40 Encephalopathy, unspecified; Z68.43 Body mass index [BMI] 50.0-59.9, adult; E66.01 Morbid (severe) obesity due to excess calories; I10 Essential (primary) hypertension; E78.5 Hyperlipidemia, unspecified; J45.909 Unspecified asthma, uncomplicated; K21.9 Gastro-esophageal reflux disease without esophagitis; R56.9 Unspecified convulsions
CPT/HCPCS: 2NAP; 36415; 71045; 74018; 74176; 81001; 82436; 87040; 87070; 87086; 87449; 87450; 87804; 87804-59; 93005; 93010; 93306; 93970; 96372; 96374; 97110-GO; 97116-GO; 97161-GP; 97530-GO; J0456; J0690; J0696; J1650; J2920; J3250; J3490; J7040